=== PATIENT | female | born 1980 | race Caucasian/White ===

== ENCOUNTER 2022-09-20 12:50 | Inpatient (IN) | payer OTHER ==
[2022-09-20 12:55] LABS: Glucose,Whole Blood 449 mg/dL (70-110)
--- NOTE | 2022-09-20 13:40 | ED ---
General Adult HPI - General Chief complaint: Recheck/Abnormal Lab/Rx Stated complaint: hyperglycemia Time Seen by Provider: 09/20/22 13:40 Source: patient Mode of arrival: ambulatory Limitations: no limitations - History of Present Illness Initial comments: 41-year-old female with past medical history of type 1 diabetes who presents to the emergency department thinking that she is in DKA. States that she has been in DKA approximately 3 times before and was hospitalized at [facility]. Usually her DKA episodes are brought on by stress. She reports being compliant with her insulin. Check her sugar last night which was in the 500s. Corrected herself and her glucose went down to 325. Patient thought that she was "in the clear". Woke this morning with nausea, diffuse muscle aches. Having difficulty holding down any fluids to nausea. Denies fevers. No chest pain, fevers, shortness of breath, abdominal pain. No changes in her bowel or bladder habits. No other alleviating, precipitating or modifying factors - Related Data Home Medications Medication Instructions Recorded Confirmed Insulin Aspart [NovoLOG Flexpen] See Protocol SQ TID-W/MEALS 09/20/22 09/20/22 Insulin Glargine,Hum.rec.anlog 26 unit SQ HS 09/20/22 09/20/22 [Lantus Solostar Pen] Allergies Allergy/AdvReac Type Severity Reaction Status Date / Time No Known Allergies Allergy Verified 09/20/22 14:43 Review of Systems ROS Statement: Those systems with pertinent positive or pertinent negative responses have been documented in the HPI. ROS Other: All systems not noted in ROS Statement are negative. Past Medical History Past Medical History: Diabetes Mellitus History of Any Multi-Drug Resistant Organisms: None Reported Past Surgical History: Section Past Psychological History: No Psychological Hx Reported Smoking Status: Never smoker Past Alcohol Use History: None Reported Past Drug Use History: None Reported - Past Family History Mother Family Medical History: Diabetes Mellitus, Hypertension Additional Family Medical History / Comment(s): type 2 DM General Exam Limitations: no limitations General appearance: alert, other (toxic looking) Head exam: Present: atraumatic, normocephalic, normal inspection Eye exam: Present: normal appearance, PERRL, EOMI. Absent: scleral icterus, conjunctival injection, periorbital swelling ENT exam: Present: normal exam, mucous membranes dry Neck exam: Present: normal inspection. Absent: tenderness, meningismus, l ymphadenopathy Respiratory exam: Present: normal lung sounds bilaterally, other (tachpynia). Absent: respiratory distress, wheezes, rales, rhonchi, stridor Cardiovascular Exam: Present: normal rhythm, tachycardia, normal heart sounds. Absent: systolic murmur, diastolic murmur, rubs, gallop, clicks GI/Abdominal exam: Present: soft, normal bowel sounds. Absent: distended, tenderness, guarding, rebound, rigid Extremities exam: Present: normal inspection, full ROM, normal capillary refill. Absent: tenderness, pedal edema, joint swelling, calf tenderness Back exam: Present: normal inspection Neurological exam: Present: alert, oriented X3, CN II-XII intact Psychiatric exam: Present: flat affect Skin exam: Present: warm, dry, intact, normal color. Absent: rash Course Vital Signs 09/20/22 09/20/22 09/20/22 12:51 14:00 15:00 Temperature 98.2 F Pulse Rate 121 H 122 H 118 H Respiratory 20 30 H 26 H Rate Blood Pressure 119/60 O2 Sat by Pulse 100 Oximetry 09/20/22 09/20/22 16:00 17:18 Temperature 97.7 F Pulse Rate 125 H 130 H Respiratory 32 H 27 H Rate Blood Pressure 148/84 123/80 O2 Sat by Pulse 98 Oximetry - Reevaluation(s) Reevaluation #1: 09/20/22 15:[address] Price who agreed to ICU admission EKG Findings - EKG Comments: EKG Findings:: EKG demonstrates sinus tachycardia with rate of 125. WI interval 168. QRS 80. QTC 399. No acute ST segment elevations or depressions Medical Decision Making - Medical Decision Making Upon arrival patient was placed into room 18. A thorough history and physical exam is performed. IV access is established the patient is given a 2 L bolus of normal saline. Laboratory studies are conducted. Remarkable for a white count of 20. CO2 less than 5. Glucose 526. Urinalysis positive for occasional bacteria. Patient given a dose of Rocephin. Acetone is positive. Patient started on an insulin drip. ABG is obtained which demonstrates a pH of 6.9. PCO2 less than 15. She is given 2 A of bicarb. Patient originally admitted to Dr. sheet to the stepdown unit however after ABG the patient is upgraded to the ICU. Spoke with Dr. Price who agreed to admit the patient's the ICU - Lab Data Result diagrams: 09/21/22 08:38 09/22/22 00:16 Lab Results 09/20/22 09/20/22 09/20/22 Range/Units 12:54 14:33 14:33 WBC 20.0 H (3.8-10.6) k/uL RBC 5.19 (3.80-5.40) m/uL Hgb 15.0 (11.4-16.0) gm/dL Hct 49.0 H (34.0-46.0) % MCV 94.5 (80.0-100.0) fL MCH 28.9 (25.0-35.0) pg MCHC 30.6 L (31.0-37.0) g/dL RDW 13.2 (11.5-15.5) % Plt Count 284 (150-450) k/uL MPV 8.4 Neutrophils % 92 % Lymphocytes % 5 % Monocytes % 2 % Eosinophils % 0 % Basophils % 0 % Neutrophils # 18.4 H (1.3-7.7) k/uL Lymphocytes # 0.9 L (1.0-4.8) k/uL Monocytes # 0.4 (0-1.0) k/uL Eosinophils # 0.0 (0-0.7) k/uL Basophils # 0.1 (0-0.2) k/uL Hypochromasia Marked Sodium 136 L (137-145) mmol/L Potassium 5.2 H (3.5-5.1) mmol/L Chloride 107 (98-107) mmol/L Carbon Dioxide <5 L* (22-30) mmol/L Anion Gap mmol/L BUN 19 H (7-17) mg/dL Creatinine 0.83 (0.52-1.04) mg/dL Est GFR (CKD-EPI)AfAm >90 (>60 ml/min/1.73 sqM) Est GFR (CKD-EPI)NonAf 87 (>60 ml/min/1.73 sqM) Glucose 526 H* (74-99) mg/dL POC Glucose (mg/dL) 449 H (70-110) mg/dL POC Glu Inspector Tool ID Jake Del Castillo Plasma Lactic Acid Evens (0.7-2.0) mmol/L Calcium 9.5 (8.4-10.2) mg/dL Magnesium 2.0 (1.6-2.3) mg/dL Total Bilirubin 1.1 (0.2-1.3) mg/dL AST 21 (14-36) U/L ALT 19 (4-34) U/L Alkaline Phosphatase 150 H (38-126) U/L Total Protein 7.4 (6.3-8.2) g/dL Albumin 4.7 (3.5-5.0) g/dL HCG, Qual Not Detected Urine Color Urine Appearance (Clear) Urine pH (5.0-8.0) Ur Specific [place] (1.001-1.035) Urine Protein (Negative) Urine Glucose (UA) (Negative) Urine Ketones (Negative) Urine Blood (Negative) Urine Nitrite (Negative) Urine Bilirubin (Negative) Urine Urobilinogen (<2.0) mg/dL Ur Leukocyte Esterase (Negative) Urine RBC (0-5) /hpf Urine WBC (0-5) /hpf Ur Squamous Epith Cells (0-4) /hpf Amorphous Sediment (None) /hpf Urine Bacteria (None) /hpf Urine Mucus (None) /hpf Acetone, Qual Positive (Negative) 09/20/22 09/20/22 Range/Units 14:33 14:33 WBC (3.8-10.6) k/uL RBC (3.80-5.40) m/uL Hgb (11.4-16.0) gm/dL Hct (34.0-46.0) % MCV (80.0-100.0) fL MCH (25.0-35.0) pg MCHC (31.0-37.0) g/dL RDW (11.5-15.5) % Plt Count (150-450) k/uL MPV Neutrophils % % Lymphocytes % % Monocytes % % Eosinophils % % Basophils % % Neutrophils # (1.3-7.7) k/uL Lymphocytes # (1.0-4.8) k/uL Monocytes # (0-1.0) k/uL Eosinophils # (0-0.7) k/uL Basophils # (0-0.2) k/uL Hypochromasia Sodium (137-145) mmol/L Potassium (3.5-5.1) mmol/L Chloride (98-107) mmol/L Carbon Dioxide (22-30) mmol/L Anion Gap mmol/L BUN (7-17) mg/dL Creatinine (0.52-1.04) mg/dL Est GFR (CKD-EPI)AfAm (>60 ml/min/1.73 sqM) Est GFR (CKD-EPI)NonAf (>60 ml/min/1.73 sqM) Glucose (74-99) mg/dL POC Glucose (mg/dL) (70-110) mg/dL POC Glu Inspector Tool ID Plasma Lactic Acid Evens 1.7 (0.7-2.0) mmol/L Calcium (8.4-10.2) mg/dL Magnesium (1.6-2.3) mg/dL Total Bilirubin (0.2-1.3) mg/dL AST (14-36) U/L ALT (4-34) U/L Alkaline Phosphatase (38-126) U/L Total Protein (6.3-8.2) g/dL Albumin (3.5-5.0) g/dL HCG, Qual Urine Color Colorless Urine Appearance Cloudy H (Clear) Urine pH 5.5 (5.0-8.0) Ur Specific [place] 1.018 (1.001-1.035) Urine Protein Trace H (Negative) Urine Glucose (UA) 4+ H (Negative) Urine Ketones 4+ H (Negative) Urine Blood Negative (Negative) Urine Nitrite Negative (Negative) Urine Bilirubin Negative (Negative) Urine Urobilinogen <2.0 (<2.0) mg/dL Ur Leukocyte Esterase Large H (Negative) Urine RBC 2 (0-5) /hpf Urine WBC 50 H (0-5) /hpf Ur Squamous Epith Cells 5 H (0-4) /hpf Amorphous Sediment Few H (None) /hpf Urine Bacteria Occasional H (None) /hpf Urine Mucus Rare H (None) /hpf Acetone, Qual (Negative) Critical Care Time Critical Care Time: Yes Critical Care Time: 32 minutes Disposition Clinical Impression: DKA (diabetic ketoacidosis), Leukocytosis Disposition: ADMITTED IP TO THIS [facility] Condition: Serious Is patient prescribed a controlled substance at d/c from ED?: No Time of Disposition: 15:06 Decision to Admit Reason: Admit from EC Decision Date: 09/20/22 Decision Time: 15:06
[2022-09-20] MEDS ORDERED: SODIUM CHLORIDE 0.9% 1,000 ML IV STA (13:50)
[2022-09-20] MEDS ORDERED: SODIUM CHLORIDE 0.9% 1,000 ML IV ONE (14:16)
[2022-09-20 14:47] LABS: Basophils # (A) 0.1 k/uL (0-0.2); Basophils % (A) 0 %; Eosinophils % (A) 0 %; Hypochromasia Marked; Lymphocytes # (A) 0.9 k/uL (1.0-4.8); Lymphocytes % (A) 5 %; MCH 28.9 pg (25.0-35.0); MCHC 30.6 g/dL (31.0-37.0); MCV 94.5 fL (80.0-100.0); Mean Platelet Volume 8.4; Monocytes # (A) 0.4 k/uL (0-1.0); Monocytes % (A) 2 %; Neutrophils # (A) 18.4 k/uL (1.3-7.7); Neutrophils % (A) 92 %; Platelet Count 284 k/uL (150-450); RBC 5.19 m/uL (3.80-5.40); RDW 13.2 % (11.5-15.5)
[2022-09-20 14:51] LABS: ALT 19 U/L (4-34); AST 21 U/L (14-36); African American GFR (CKD) >90 (>60 ml/min/1.73 sqM); Albumin 4.7 g/dL (3.5-5.0); Alkaline Phosphatase 150 U/L (38-126); Blood Urea Nitrogen 19 mg/dL (7-17); Calcium 9.5 mg/dL (8.4-10.2); Chloride 107 mmol/L (98-107); Non-African American GFR(CKD) 87 (>60 ml/min/1.73 sqM); Potassium 5.2 mmol/L (3.5-5.1); Sodium 136 mmol/L (137-145); Total Bilirubin 1.1 mg/dL (0.2-1.3); Total Protein 7.4 g/dL (6.3-8.2)
[2022-09-20 14:56] LABS: Carbon Dioxide <5 mmol/L (22-30); Glucose 526 mg/dL (74-99)
[2022-09-20 15:02] LABS: Amorphous Sediment,Urine Few /hpf; Appearance,Urine Cloudy (Clear); Bacteria,Urine Occasional /hpf; Bilirubin,Urine Negative (Negative); Blood,Urine Negative (Negative); Color,Urine Colorless; Glucose,Urine (UA) 4+ (Negative); Leukocyte Esterase,Urine Large (Negative); Mucus,Urine Rare /hpf; Nitrite,Urine Negative (Negative); PH, Urine 5.5 (5.0-8.0); Protein,Urine Trace (Negative); RBC,Urine 2 /hpf (0-5); Specific Gravity,Urine 1.018 (1.001-1.035); Squamous Epithelial Cell,Urine 5 /hpf (0-4); Urobilinogen,Urine <2.0 mg/dL (<2.0); WBC,Urine 50 /hpf (0-5)
[2022-09-20 15:07] LABS: Ketones,Urine 4+ (Negative)
[2022-09-20 15:37] LABS: ABG Oxygen Saturation 97.8 % (94-97); ABG PO2 136 mmHg (83-108); Allen Test Performed? Yes
[2022-09-20 15:41] LABS: ABG PCO2 <15 mmHg (35-45); ABG PH 6.94 (7.35-7.45)
[2022-09-20] MEDS ORDERED: SODIUM BICARB 8.4% 50 ML SYR (1 MEQ/ML) IV STA (15:48)
[2022-09-20] MEDS ORDERED: NALOXONE 0.4 MG/ML 1 ML VIAL IV PRN (15:49)
[2022-09-20] MEDS ORDERED: ONDANSETRON 4 MG/2 ML VIAL IVP STA (15:51)
[2022-09-20] MEDS: INSULIN REGULAR 100 UNIT in SODIUM CHLORIDE 0.9% 100 ML IV SCH (16:17)
[2022-09-20 17:03] LABS: Glucose,Whole Blood 410 mg/dL (70-110)
[2022-09-20 17:04] LABS: HCG,Qualitative Serum Not Detected
[2022-09-20] MEDS ORDERED: SODIUM CHLORIDE 0.9% 1,000 ML IV SCH (17:30)
[2022-09-20 18:09] LABS: Glucose,Whole Blood 299 mg/dL (70-110)
[2022-09-20 18:40] LABS: Glucose,Whole Blood 259 mg/dL (70-110)
[2022-09-20] MEDS: D5-0.45% NACL WITH KCL 20MEQ/L 1,000 ML IV SCH (18:40)
--- NOTE | 2022-09-20 18:56 | P.HPIM ---
History of Present Illness This is a pleasant 41 years old female with past medical history of diabetes mellitus, insulin-dependent on Lantus presents because she was feeling her sugar high she was feeling nauseated with leg cramps. patient is a known diabetic on lantus insulin at 26 units daily and humolog insulin per sliding scale , yesterday evening patient was getting more tired with nausea and week and she gets a feeling that her sugar high when she checked and it was 557 she took extra dose of insulin and into hours went down to 327, and the morning was high again and take extra more and she felt better a little bit but then she got worse and decided to come to emergency room Patient is fully awake and oriented 3. She is very tachypneic but denies any chest pain or coughing or dyspnea. No abdominal pain or vomiting. She denies diarrhea. She denies urinary complaints, no fever. No headache or dizziness or weakness or numbness. No problem with her menstrual cycle. No vaginal discharge. She denies also smoking alcohol or illicit drugs On admission her Vitas looks stable and patient is afebrile . Patient is tachycardic and tachypneic however patient saturates 98% on room air showing leukocytosis 20,000, supple looks dehydrated. PH is low at 6.9 and pCO2 less than 15 while prior to 136. Sodium 136, potassium 5.2, creatinine normal 0.8. Glucose elevated 526. Liver enzymes and bilirubin normal. Urinalysis is suspicious for UTI. Acetone is positive. HCG serum is negative EKG shows sinus tachycardia at [address]-T changes In the emergency room she received 2 L of normal saline, sodium bicarb and started on insulin drip per protocol Review of Systems Review of systems CONSTITUTIONAL: No fever, no malaise, no fatigue. HEENT: No recent visual problems or hearing problems. Denied any sore throat. CARDIOVASCULAR: No orthopnea, PND, no palpitations, no syncope. PULMONARY: No shortness of breath, no cough, no hemoptysis. GASTROINTESTINAL: No diarrhea,no vomiting, no abdominal pain. Normoactive bowel sounds. NEUROLOGICAL: No headaches, no weakness, no numbness. HEMATOLOGICAL: Denies any bleeding or petechiae. GENITOURINARY: Denies any burning micturition, frequency, or urgency. MUSCULOSKELETAL/RHEUMATOLOGICAL: Denies any joint pain, swelling, or any muscle pain. ENDOCRINE: Denies any polyuria or polydipsia. Past Medical History Past Medical History: Diabetes Mellitus History of Any Multi-Drug Resistant Organisms: None Reported Past Surgical History: Section Past Psychological History: No Psychological Hx Reported Smoking Status: Never smoker Past Alcohol Use History: None Reported Past Drug Use History: None Reported - Past Family History Mother Family Medical History: Diabetes Mellitus, Hypertension Additional Family Medical History / Comment(s): type 2 DM Medications and Allergies Home Medications Medication Instructions Recorded Confirmed Type Insulin Aspart [NovoLOG Flexpen] See Protocol SQ TID-W/MEALS 09/20/22 09/20/22 History Insulin Glargine,Hum.rec.anlog 26 unit SQ HS 09/20/22 09/20/22 History [Lantus Solostar Pen] Allergies Allergy/AdvReac Type Severity Reaction Status Date / Time No Known Allergies Allergy Verified 09/20/22 14:43 Physical Exam Vitals: Vital Signs Temp Pulse Resp BP Pulse Ox 09/20/22 16:00 125 H 32 H 148/84 09/20/22 15:00 118 H 26 H 09/20/22 14:00 122 H 30 H 09/20/22 12:51 98.2 F 121 H 20 119/60 100 Intake and Output 09/20/22 09/20/22 09/20/22 06:59 14:59 22:59 Other: Weight 61.235 kg -GENERAL: The patient is alert and oriented x3, not in any acute distress. Well developed, well nourished. Patient looks fatigued and generally weak and appre hensive HEENT: Pupils are round and equally reacting to light. EOMI. No scleral icterus. No conjunctival pallor. Normocephalic, atraumatic. No pharyngeal erythema. No thyromegaly. CARDIOVASCULAR: S1 and S2 present. No murmurs, rubs, or gallops. -PULMONARY: Chest is clear to auscultation, no wheezing or crackles. Tachypnea ABDOMEN: Soft, nontender, nondistended, normoactive bowel sounds. No palpable organomegaly. MUSCULOSKELETAL: No joint swelling or deformity. EXTREMITIES: No cyanosis, clubbing, or pedal edema. NEUROLOGICAL: Gross neurological examination did not reveal any focal deficits. SKIN: No rashes. no petechiae. Results CBC & Chem 7: 09/20/22 14:33 11/16/22 14:33 Labs: Abnormal Lab Results - Last 24 Hours (Table) 09/20/22 09/20/22 09/20/22 Range/Units 12:54 14:33 14:33 WBC 20.0 H (3.8-10.6) k/uL Hct 49.0 H (34.0-46.0) % MCHC 30.6 L (31.0-37.0) g/dL Neutrophils # 18.4 H (1.3-7.7) k/uL Lymphocytes # 0.9 L (1.0-4.8) k/uL ABG pH (7.35-7.45) ABG pCO2 (35-45) mmHg ABG pO2 (83-108) mmHg ABG O2 Saturation (94-97) % Sodium 136 L (137-145) mmol/L Potassium 5.2 H (3.5-5.1) mmol/L Carbon Dioxide <5 L* (22-30) mmol/L BUN 19 H (7-17) mg/dL Glucose 526 H* (74-99) mg/dL POC Glucose (mg/dL) 449 H (70-110) mg/dL Alkaline Phosphatase 150 H (38-126) U/L Urine Appearance (Clear) Urine Protein (Negative) Urine Glucose (UA) (Negative) Urine Ketones (Negative) Ur Leukocyte Esterase (Negative) Urine WBC (0-5) /hpf Ur Squamous Epith Cells (0-4) /hpf Amorphous Sediment (None) /hpf Urine Bacteria (None) /hpf Urine Mucus (None) /hpf 09/20/22 09/20/22 Range/Units 14:33 15:26 WBC (3.8-10.6) k/uL Hct (34.0-46.0) % MCHC (31.0-37.0) g/dL Neutrophils # (1.3-7.7) k/uL Lymphocytes # (1.0-4.8) k/uL ABG pH 6.94 L* (7.35-7.45) ABG pCO2 <15 L* (35-45) mmHg ABG pO2 136 H (83-108) mmHg ABG O2 Saturation 97.8 H (94-97) % Sodium (137-145) mmol/L Potassium (3.5-5.1) mmol/L Carbon Dioxide (22-30) mmol/L BUN (7-17) mg/dL Glucose (74-99) mg/dL POC Glucose (mg/dL) (70-110) mg/dL Alkaline Phosphatase (38-126) U/L Urine Appearance Cloudy H (Clear) Urine Protein Trace H (Negative) Urine Glucose (UA) 4+ H (Negative) Urine Ketones 4+ H (Negative) Ur Leukocyte Esterase Large H (Negative) Urine WBC 50 H (0-5) /hpf Ur Squamous Epith Cells 5 H (0-4) /hpf Amorphous Sediment Few H (None) /hpf Urine Bacteria Occasional H (None) /hpf Urine Mucus Rare H (None) /hpf Assessment and Plan Assessment: diabetic ketoacidosis diabetes mellitus with hyperglycemia Metabolic acidosis secondary to above dehydration possible acute urinary tract infection Plan: continue with insulin drip per protocol Continue with IV hydration Replace electrolytes Monitor glucose closely. Start ceftriaxone follow-up urine culture Check chest x-ray Pulmonary/critical care team consult Labs and medication were reviewed.. Continue same treatment. Continue with symptomatic treatment. Resume home medication. Monitor labs and vitals. DVT and GI prophylaxis. Further recommendations as per clinical course of the patient DVT prophylaxis: Subcutaneous heparin GI Prophylaxis: Pepcid Prognosis is guarded
[2022-09-20 19:07] LABS: African American GFR (CKD) >90 (>60 ml/min/1.73 sqM); Anion Gap 24 mmol/L; Blood Urea Nitrogen 18 mg/dL (7-17); Chloride 116 mmol/L (98-107); Glucose 316 mg/dL (74-99); Non-African American GFR(CKD) >90 (>60 ml/min/1.73 sqM); Potassium 4.8 mmol/L (3.5-5.1); Sodium 145 mmol/L (137-145)
[2022-09-20 19:11] LABS: Glucose,Whole Blood 309 mg/dL (70-110)
[2022-09-20 19:12] LABS: Carbon Dioxide 5 mmol/L (22-30)
--- NOTE | 2022-09-20 19:46 | XR ---
EXAMINATION TYPE: XR chest 1V portable DATE OF EXAM: 09/20/2022 7:16 PM COMPARISON: None TECHNIQUE: XR chest 1V portable Portable AP radiograph of the chest. CLINICAL INDICATION:Female, 41 years old with history of tachypnea; FINDINGS: Lungs/Pleura: There is no evidence of pleural effusion, focal consolidation, or pneumothorax. Pulmonary vascularity: Unremarkable. Heart/mediastinum: Cardiomediastinal silhouette is unremarkable. Musculoskeletal: No acute osseous pathology. IMPRESSION: No acute cardiopulmonary disease/process.
[2022-09-20 20:35] LABS: Glucose,Whole Blood 245 mg/dL (70-110)
[2022-09-20] MEDS: FAMOTIDINE 20 MG/2 ML VIAL IV SCH (20:52)
[2022-09-20] MEDS: HEPARIN SODIUM,PORCINE/PF 5,000 UNIT/0.5 ML SYRINGE SQ SCH (20:57)
[2022-09-20 21:54] LABS: Glucose,Whole Blood 209 mg/dL (70-110)
[2022-09-20 22:44] LABS: Glucose,Whole Blood 216 mg/dL (70-110)
[2022-09-21 00:07] LABS: African American GFR (CKD) >90 (>60 ml/min/1.73 sqM); Anion Gap 18 mmol/L; Blood Urea Nitrogen 15 mg/dL (7-17); Calcium 8.8 mg/dL (8.4-10.2); Chloride 119 mmol/L (98-107); Glucose 224 mg/dL (74-99); Magnesium 2.1 mg/dL (1.6-2.3); Non-African American GFR(CKD) >90 (>60 ml/min/1.73 sqM); Potassium 4.6 mmol/L (3.5-5.1); Sodium 144 mmol/L (137-145)
[2022-09-21 00:12] LABS: Glucose,Whole Blood 194 mg/dL (70-110)
[2022-09-21 00:15] LABS: Carbon Dioxide 7 mmol/L (22-30)
[2022-09-21] MEDS: D5-0.45% NACL WITH KCL 20MEQ/L 1,000 ML IV SCH ×4 (01:16→21:08)
[2022-09-21 01:19] LABS: Glucose,Whole Blood 152 mg/dL (70-110)
[2022-09-21 02:52] LABS: Glucose,Whole Blood 145 mg/dL (70-110)
[2022-09-21 04:54] LABS: Glucose,Whole Blood 149 mg/dL (70-110)
[2022-09-21 06:00] LABS: Glucose,Whole Blood 166 mg/dL (70-110)
[2022-09-21 06:52] LABS: Glucose,Whole Blood 169 mg/dL (70-110)
[2022-09-21 08:01] LABS: Glucose,Whole Blood 176 mg/dL (70-110)
[2022-09-21 09:03] LABS: Glucose,Whole Blood 221 mg/dL (70-110)
[2022-09-21 09:29] LABS: HGB 14.5 gm/dL (11.4-16.0); Hypochromasia Marked; MCH 28.8 pg (25.0-35.0); MCHC 31.6 g/dL (31.0-37.0); MCV 91.2 fL (80.0-100.0); Mean Platelet Volume 9.7; Platelet Count 180 k/uL (150-450); RBC 5.04 m/uL (3.80-5.40); RDW 13.6 % (11.5-15.5); WBC 12.8 k/uL (3.8-10.6)
[2022-09-21] MEDS: ACETAMINOPHEN TAB 325 MG TAB PO PRN ×3 (09:29→22:04)
[2022-09-21 09:48] LABS: ALT 14 U/L (4-34); AST 14 U/L (14-36); African American GFR (CKD) >90 (>60 ml/min/1.73 sqM); Albumin 3.5 g/dL (3.5-5.0); Alkaline Phosphatase 106 U/L (38-126); Anion Gap 13 mmol/L; Bilirubin, Delta 0.4 mg/dL (0.0-0.2); Bilirubin,Unconjugated 0.3 mg/dL (0.0-1.1); Blood Urea Nitrogen 14 mg/dL (7-17); Calcium 8.2 mg/dL (8.4-10.2); Carbon Dioxide 11 mmol/L (22-30); Chloride 118 mmol/L (98-107); Glucose 226 mg/dL (74-99); Magnesium 1.8 mg/dL (1.6-2.3); Non-African American GFR(CKD) >90 (>60 ml/min/1.73 sqM); Potassium 4.6 mmol/L (3.5-5.1); Sodium 142 mmol/L (137-145); Total Bilirubin 0.7 mg/dL (0.2-1.3); Total Protein 5.7 g/dL (6.3-8.2)
[2022-09-21 10:00] LABS: Glucose,Whole Blood 241 mg/dL (70-110)
[2022-09-21] MEDS: HEPARIN SODIUM,PORCINE/PF 5,000 UNIT/0.5 ML SYRINGE SQ SCH ×2 (10:00→21:13)
[2022-09-21] MEDS: FAMOTIDINE 20 MG/2 ML VIAL IV SCH ×2 (10:00→21:16)
[2022-09-21] MEDS ORDERED: Magnesium Replacement Protocol 1 EACH MISC MISCELLANE PRN (10:38)
[2022-09-21] MEDS: MAGNESIUM SULFATE-D5W PMX 1 GM in DEXTROSE/WATER 1 100ML.BAG IVPB SCH ×2 (11:02→13:00)
--- NOTE | 2022-09-21 11:22 | P.PN ---
Subjective This is a pleasant 41 years old female with past medical history of diabetes mellitus, insulin-dependent on Lantus presents because she was feeling her sugar high she was feeling nauseated with leg cramps. patient is a known diabetic on lantus insulin at 26 units daily and humolog insulin per sliding scale , yesterday evening patient was getting more tired with nausea and week and she gets a feeling that her sugar high when she checked and it was 557 she took extra dose of insulin and into hours went down to 327, and the morning was high again and take extra more and she felt better a little bit but then she got worse and decided to come to emergency room Patient is fully awake and oriented 3. She is very tachypneic but denies any chest pain or coughing or dyspnea. No abdominal pain or vomiting. She denies diarrhea. She denies urinary complaints, no fever. No headache or dizziness or weakness or numbness. No problem with her menstrual cycle. No vaginal discharge. She denies also smoking alcohol or illicit drugs On admission her Vitas looks stable and patient is afebrile . Patient is tachycardic and tachypneic however patient saturates 98% on room air showing leukocytosis 20,000, supple looks dehydrated. PH is low at 6.9 and pCO2 less than 15 while prior to 136. Sodium 136, potassium 5.2, creatinine normal 0.8. Glucose elevated 526. Liver enzymes and bilirubin normal. Urinalysis is suspicious for UTI. Acetone is positive. HCG serum is negative EKG shows sinus tachycardia at [address]-T changes In the emergency room she received 2 L of normal saline, sodium bicarb and started on insulin drip per protocol 09/21/2022 Patient is awake alert, looks more comfortable today, more calm and relaxed. No nonhypertensive. Tachypnea has resolved.She still tachycardic with heart rate around 117 Her sugars better controlled and her neck Is this morning at 13. Specimen vitals are stable WBC was 20,000 yesterday, today lab are pending. She is also on ceftriaxone for possible UTI, no more symptoms and urine culture is pending. Continue with of the fluid and insulin drip this morning hopefully would be able to switch it to longer acting insulin with sliding scale and then the patient started eating today Objective - Vital Signs Vital signs: Vital Signs Temp 98.7 F 09/21/22 08:00 Pulse 117 H 09/21/22 11:00 Resp 23 09/21/22 11:00 BP 131/77 09/21/22 11:00 Pulse Ox 98 09/21/22 11:00 FiO2 Intake & Output 09/20/22 09/21/22 09/21/22 18:59 06:59 18:59 Intake Total 200 1860.764 750 Output Total 0 900 Balance 200 1860.764 -150 Weight 61.235 kg 64.4 kg Intake: IV 200 1800 750 D5-0.45% NaCl with KCl 1800 750 20Meq/l 1,000 ml @ 150 mls/hr IV .[id number] [facility] Rx# :[id number] Sodium Chloride 0.9% 1, 200 000 ml @ 200 mls/hr IV . Q5H [facility] Rx#:[id number] Intake, IV Titration 60.764 Amount Insulin Regular 100 unit 60.764 In Sodium Chloride 0.9% 100 ml @ 0.1 UNITS/KG/HR 6.185 mls/hr IV .[id number] [facility] Rx#:[id number] Output: Urine 0 900 Other: Voiding Method Toilet Toilet # Voids 1 0 - Exam GENERAL: The patient is alert and oriented x3, not in any acute distress. Well developed, well nourished. HEENT: Pupils are round and equally reacting to light. EOMI. No scleral icterus. No conjunctival pallor. Normocephalic, atraumatic. No pharyngeal erythema. No thyromegaly. CARDIOVASCULAR: S1 and S2 present. No murmurs, rubs, or gallops. PULMONARY: Chest is clear to auscultation, no wheezing or crackles. ABDOMEN: Soft, nontender, nondistended, normoactive bowel sounds. No palpable organomegaly. MUSCULOSKELETAL: No joint swelling or deformity. EXTREMITIES: No cyanosis, clubbing, or pedal edema. NEUROLOGICAL: Gross neurological examination did not reveal any focal deficits. SKIN: No rashes. no petechiae. - Labs CBC & Chem 7: 09/20/22 14:33 09/21/22 08:39 Labs: Abnormal Lab Results - Last 24 Hours (Table) 09/20/22 09/20/22 09/20/22 Range/Units 12:54 14:33 14:33 WBC 20.0 H (3.8-10.6) k/uL Hct 49.0 H (34.0-46.0) % MCHC 30.6 L (31.0-37.0) g/dL Neutrophils # 18.4 H (1.3-7.7) k/uL Lymphocytes # 0.9 L (1.0-4.8) k/uL ABG pH (7.35-7.45) ABG pCO2 (35-45) mmHg ABG pO2 (83-108) mmHg ABG O2 Saturation (94-97) % Sodium 136 L (137-145) mmol/L Potassium 5.2 H (3.5-5.1) mmol/L Chloride (98-107) mmol/L Carbon Dioxide <5 L* (22-30) mmol/L BUN 19 H (7-17) mg/dL Glucose 526 H* (74-99) mg/dL POC Glucose (mg/dL) 449 H (70-110) mg/dL Calcium (8.4-10.2) mg/dL Delta Bilirubin (0.0-0.2) mg/dL Alkaline Phosphatase 150 H (38-126) U/L Total Protein (6.3-8.2) g/dL Urine Appearance (Clear) Urine Protein (Negative) Urine Glucose (UA) (Negative) Urine Ketones (Negative) Ur Leukocyte Esterase (Negative) Urine WBC (0-5) /hpf Ur Squamous Epith Cells (0-4) /hpf Amorphous Sediment (None) /hpf Urine Bacteria (None) /hpf Urine Mucus (None) /hpf 09/20/22 09/20/22 09/20/22 Range/Units 14:33 15:26 17:01 WBC (3.8-10.6) k/uL Hct (34.0-46.0) % MCHC (31.0-37.0) g/dL Neutrophils # (1.3-7.7) k/uL Lymphocytes # (1.0-4.8) k/uL ABG pH 6.94 L* (7.35-7.45) ABG pCO2 <15 L* (35-45) mmHg ABG pO2 136 H (83-108) mmHg ABG O2 Saturation 97.8 H (94-97) % Sodium (137-145) mmol/L Potassium (3.5-5.1) mmol/L Chloride (98-107) mmol/L Carbon Dioxide (22-30) mmol/L BUN (7-17) mg/dL Glucose (74-99) mg/dL POC Glucose (mg/dL) 410 H (70-110) mg/dL Calcium (8.4-10.2) mg/dL Delta Bilirubin (0.0-0.2) mg/dL Alkaline Phosphatase (38-126) U/L Total Protein (6.3-8.2) g/dL Urine Appearance Cloudy H (Clear) Urine Protein Trace H (Negative) Urine Glucose (UA) 4+ H (Negative) Urine Ketones 4+ H (Negative) Ur Leukocyte Esterase Large H (Negative) Urine WBC 50 H (0-5) /hpf Ur Squamous Epith Cells 5 H (0-4) /hpf Amorphous Sediment Few H (None) /hpf Urine Bacteria Occasional H (None) /hpf Urine Mucus Rare H (None) /hpf 09/20/22 09/20/22 09/20/22 Range/Units 18:07 18:33 18:38 WBC (3.8-10.6) k/uL Hct (34.0-46.0) % MCHC (31.0-37.0) g/dL Neutrophils # (1.3-7.7) k/uL Lymphocytes # (1.0-4.8) k/uL ABG pH (7.35-7.45) ABG pCO2 (35-45) mmHg ABG pO2 (83-108) mmHg ABG O2 Saturation (94-97) % Sodium (137-145) mmol/L Potassium (3.5-5.1) mmol/L Chloride 116 H (98-107) mmol/L Carbon Dioxide 5 L* (22-30) mmol/L BUN 18 H (7-17) mg/dL Glucose 316 H (74-99) mg/dL POC Glucose (mg/dL) 299 H 259 H (70-110) mg/dL Calcium (8.4-10.2) mg/dL Delta Bilirubin (0.0-0.2) mg/dL Alkaline Phosphatase (38-126) U/L Total Protein (6.3-8.2) g/dL Urine Appearance (Clear) Urine Protein (Negative) Urine Glucose (UA) (Negative) Urine Ketones (Negative) Ur Leukocyte Esterase (Negative) Urine WBC (0-5) /hpf Ur Squamous Epith Cells (0-4) /hpf Amorphous Sediment (None) /hpf Urine Bacteria (None) /hpf Urine Mucus (None) /hpf 09/20/22 09/20/22 09/20/22 Range/Units 19:10 20:34 21:53 WBC (3.8-10.6) k/uL Hct (34.0-46.0) % MCHC (31.0-37.0) g/dL Neutrophils # (1.3-7.7) k/uL Lymphocytes # (1.0-4.8) k/uL ABG pH (7.35-7.45) ABG pCO2 (35-45) mmHg ABG pO2 (83-108) mmHg ABG O2 Saturation (94-97) % Sodium (137-145) mmol/L Potassium (3.5-5.1) mmol/L Chloride (98-107) mmol/L Carbon Dioxide (22-30) mmol/L BUN (7-17) mg/dL Glucose (74-99) mg/dL POC Glucose (mg/dL) 309 H 245 H 209 H (70-110) mg/dL Calcium (8.4-10.2) mg/dL Delta Bilirubin (0.0-0.2) mg/dL Alkaline Phosphatase (38-126) U/L Total Protein (6.3-8.2) g/dL Urine Appearance (Clear) Urine Protein (Negative) Urine Glucose (UA) (Negative) Urine Ketones (Negative) Ur Leukocyte Esterase (Negative) Urine WBC (0-5) /hpf Ur Squamous Epith Cells (0-4) /hpf Amorphous Sediment (None) /hpf Urine Bacteria (None) /hpf Urine Mucus (None) /hpf 09/20/22 09/20/22 09/21/22 Range/Units 22:43 23:01 00:10 WBC (3.8-10.6) k/uL Hct (34.0-46.0) % MCHC (31.0-37.0) g/dL Neutrophils # (1.3-7.7) k/uL Lymphocytes # (1.0-4.8) k/uL ABG pH (7.35-7.45) ABG pCO2 (35-45) mmHg ABG pO2 (83-108) mmHg ABG O2 Saturation (94-97) % Sodium (137-145) mmol/L Potassium (3.5-5.1) mmol/L Chloride 119 H (98-107) mmol/L Carbon Dioxide 7 L* (22-30) mmol/L BUN (7-17) mg/dL Glucose 224 H (74-99) mg/dL POC Glucose (mg/dL) 216 H 194 H (70-110) mg/dL Calcium (8.4-10.2) mg/dL Delta Bilirubin (0.0-0.2) mg/dL Alkaline Phosphatase (38-126) U/L Total Protein (6.3-8.2) g/dL Urine Appearance (Clear) Urine Protein (Negative) Urine Glucose (UA) (Negative) Urine Ketones (Negative) Ur Leukocyte Esterase (Negative) Urine WBC (0-5) /hpf Ur Squamous Epith Cells (0-4) /hpf Amorphous Sediment (None) /hpf Urine Bacteria (None) /hpf Urine Mucus (None) /hpf 09/21/22 09/21/22 09/21/22 Range/Units 01:17 02:51 04:53 WBC (3.8-10.6) k/uL Hct (34.0-46.0) % MCHC (31.0-37.0) g/dL Neutrophils # (1.3-7.7) k/uL Lymphocytes # (1.0-4.8) k/uL ABG pH (7.35-7.45) ABG pCO2 (35-45) mmHg ABG pO2 (83-108) mmHg ABG O2 Saturation (94-97) % Sodium (137-145) mmol/L Potassium (3.5-5.1) mmol/L Chloride (98-107) mmol/L Carbon Dioxide (22-30) mmol/L BUN (7-17) mg/dL Glucose (74-99) mg/dL POC Glucose (mg/dL) 152 H 145 H 149 H (70-110) mg/dL Calcium (8.4-10.2) mg/dL Delta Bilirubin (0.0-0.2) mg/dL Alkaline Phosphatase (38-126) U/L Total Protein (6.3-8.2) g/dL Urine Appearance (Clear) Urine Protein (Negative) Urine Glucose (UA) (Negative) Urine Ketones (Negative) Ur Leukocyte Esterase (Negative) Urine WBC (0-5) /hpf Ur Squamous Epith Cells (0-4) /hpf Amorphous Sediment (None) /hpf Urine Bacteria (None) /hpf Urine Mucus (None) /hpf 09/21/22 09/21/22 09/21/22 Range/Units 05:58 06:51 08:00 WBC (3.8-10.6) k/uL Hct (34.0-46.0) % MCHC (31.0-37.0) g/dL Neutrophils # (1.3-7.7) k/uL Lymphocytes # (1.0-4.8) k/uL ABG pH (7.35-7.45) ABG pCO2 (35-45) mmHg ABG pO2 (83-108) mmHg ABG O2 Saturation (94-97) % Sodium (137-145) mmol/L Potassium (3.5-5.1) mmol/L Chloride (98-107) mmol/L Carbon Dioxide (22-30) mmol/L BUN (7-17) mg/dL Glucose (74-99) mg/dL POC Glucose (mg/dL) 166 H 169 H 176 H (70-110) mg/dL Calcium (8.4-10.2) mg/dL Delta Bilirubin (0.0-0.2) mg/dL Alkaline Phosphatase (38-126) U/L Total Protein (6.3-8.2) g/dL Urine Appearance (Clear) Urine Protein (Negative) Urine Glucose (UA) (Negative) Urine Ketones (Negative) Ur Leukocyte Esterase (Negative) Urine WBC (0-5) /hpf Ur Squamous Epith Cells (0-4) /hpf Amorphous Sediment (None) /hpf Urine Bacteria (None) /hpf Urine Mucus (None) /hpf 09/21/22 09/21/22 09/21/22 Range/Units 08:39 09:02 09:59 WBC (3.8-10.6) k/uL Hct (34.0-46.0) % MCHC (31.0-37.0) g/dL Neutrophils # (1.3-7.7) k/uL Lymphocytes # (1.0-4.8) k/uL ABG pH (7.35-7.45) ABG pCO2 (35-45) mmHg ABG pO2 (83-108) mmHg ABG O2 Saturation (94-97) % Sodium (137-145) mmol/L Potassium (3.5-5.1) mmol/L Chloride 118 H (98-107) mmol/L Carbon Dioxide 11 L (22-30) mmol/L BUN (7-17) mg/dL Glucose 226 H (74-99) mg/dL POC Glucose (mg/dL) 221 H 241 H (70-110) mg/dL Calcium 8.2 L (8.4-10.2) mg/dL Delta Bilirubin 0.4 H (0.0-0.2) mg/dL Alkaline Phosphatase (38-126) U/L Total Protein 5.7 L (6.3-8.2) g/dL Urine Appearance (Clear) Urine Protein (Negative) Urine Glucose (UA) (Negative) Urine Ketones (Negative) Ur Leukocyte Esterase (Negative) Urine WBC (0-5) /hpf Ur Squamous Epith Cells (0-4) /hpf Amorphous Sediment (None) /hpf Urine Bacteria (None) /hpf Urine Mucus (None) /hpf Microbiology - Last 24 Hours (Table) 09/20/22 14:33 Urine Culture - Preliminary Urine,Voided Assessment and Plan Assessment: diabetic ketoacidosis diabetes mellitus with hyperglycemia Metabolic acidosis secondary to above dehydration possible acute urinary tract infection Plan: continue with insulin drip per protocol Continue with IV hydration Replace electrolytes Monitor glucose closely. Start ceftriaxone follow-up urine culture Pulmonary/critical care team consult Labs and medication were reviewed.. Continue same treatment. Continue with symptomatic treatment. Resume home medication. Monitor labs and vitals. DVT and GI prophylaxis. Further recommendations as per clinical course of the harpreet ent DVT prophylaxis: Subcutaneous heparin GI Prophylaxis: Pepcid Prognosis is guarded
--- NOTE | 2022-09-21 11:23 | P.CNPUL ---
History of Present Illness Consult date: 09/21/22 Requesting physician: Juan Carlos Kaba Reason for consult: other (Critical care management) Chief complaint: Nausea, diffuse muscle aches, hyperglycemia History of present illness: This is a very pleasant 41-year-old female patient who follows with Dr. Rojas as her primary care provider. She has a history of insulin-dependent diabetes mellitus. She has had 3 prior admissions for DKA to [facility]. She presented here to our emergency room yesterday with complaints of nausea, di ffuse muscle aches, poor appetite and could not control her blood sugar levels at home. She is on Lantus Solostar pen 26 units at bedtime along with NovoLog Flex pen 3 times a day with meals. Initial glucose here was 526. Bicarb less than 5. Anion gap of 24. Urinalysis with 4+ glucose. 4+ ketones. Acetone positive. Blood gases revealed a pO2 of 136, pCO2 less than 15, pH 6.95 on 21% FiO2. She was admitted to the intensive care unit and started on the DKA protocol. She is seen today in consultation. She is currently resting comfortably in bed. Awake and alert in no acute distress. She is maintaining good O2 saturations in the 90s on room air. Insulin drip at 1.55 units per hour. D5 W with 0.45 saline and 20 of KCl at 150 ML's per hour. Urinalysis also showed possible UTI and she is currently on ceftriaxone. White count 20.0. Hemoglobin 15.0. Sodium 142. Potassium 4.6. Chloride 118. Bicarb 11. Anion gap 13. BUN 14. Creatinine 0.60. Glucose 241. Started on heparin for DVT prophylaxis. Pepcid for GI prophylaxis. Review of Systems REVIEW OF SYSTEMS: CONSTITUTIONAL: Positive for generalized weakness. Denies any recent significant weight loss or weight gain. EYES: Denies change in vision. EARS, NOSE, MOUTH, THROAT: Denies headaches, denies sore throat. CARDIOVASCULAR: Denies chest pain, palpitations or syncopal episodes. RESPIRATORY: Denies shortness of breath, cough, congestion or hemoptysis. GASTROINTESTINAL: Positive for nausea, poor appetite GENITOURINARY: Denies hematuria, denies infections. MUSKULOSKELETAL: Denies pain, denies swelling. INTEGUMENTARY: Denies rash, denies eczema. NEUROLOGICAL: Denies recent memory loss, no recent seizure activity. PSYCHIATRIC: Denies anxiety, denies depression. HEMATOLOGIC/LYMPHATIC: Denies anemia, denies enlarged lymph nodes. 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 Past Anesthesia/Blood Transfusion Reactions: No Reported Reaction Past Psychological History: No Psychological Hx Reported Smoking Status: Never smoker Past Alcohol Use History: None Reported Past Drug Use History: None Reported - Past Family History Mother Family Medical History: Diabetes Mellitus, Hypertension Additional Family Medical History / Comment(s): type 2 DM Medications and Allergies Home Medications Medication Instructions Recorded Confirmed Type Insulin Aspart [NovoLOG Flexpen] See Protocol SQ TID-W/MEALS 09/20/22 09/20/22 History Insulin Glargine,Hum.rec.anlog 26 unit SQ HS 09/20/22 09/20/22 History [Lantus Solostar Pen] Allergies Allergy/AdvReac Type Severity Reaction Status Date / Time No Known Allergies Allergy Verified 09/20/22 14:43 Physical Exam Vitals: Vital Signs Temp Pulse Pulse Resp BP Pulse Ox 09/21/22 11:00 117 H 23 131/77 98 09/21/22 10:00 125 H 17 128/77 98 09/21/22 09:00 123 H 123/75 99 09/21/22 08:00 98.7 F 125 H 113 H 133/75 98 09/21/22 07:00 118 H 25 H 130/77 99 09/21/22 06:30 114 H 18 98 09/21/22 06:00 112 H 17 123/70 99 09/21/22 05:30 105 H 18 98 09/21/22 05:00 113 H 30 H 133/81 98 09/21/22 04:30 115 H 15 99 09/21/22 04:00 97 F L 116 H 113 H 17 112/68 98 09/21/22 03:30 111 H 20 98 09/21/22 03:00 115 H 18 110/67 99 09/21/22 02:30 117 H 19 110/67 99 09/21/22 02:00 112 H 20 134/80 98 09/21/22 01:30 120 H 18 134/80 99 09/21/22 01:00 122 H 17 111/71 99 09/21/22 00:36 116 H 21 99 09/21/22 00:30 114 H 16 111/71 98 09/21/22 00:00 98 F 120 H 113 H 16 112/73 99 09/20/22 23:30 113 H 17 112/73 98 09/20/22 23:00 118 H 22 108/69 97 09/20/22 22:30 120 H 16 99 09/20/22 22:00 122 H 17 114/70 99 09/20/22 21:30 122 H 18 99 09/20/22 21:00 121 H 19 114/70 99 09/20/22 20:30 118 H 17 99 09/20/22 20:00 97.7 F 122 H 122 H 19 101/67 95 09/20/22 19:30 124 H 40 H 99 09/20/22 19:00 126 H 27 H 98 09/20/22 18:30 126 H 29 H 118/66 97 09/20/22 18:00 130 H 28 H 95 09/20/22 17:30 130 H 27 H 123/80 97 09/20/22 17:18 97.7 F 130 H 27 H 123/80 98 09/20/22 16:00 125 H 32 H 148/84 09/20/22 15:00 118 H 26 H 09/20/22 14:00 122 H 30 H 09/20/22 12:51 98.2 F 121 H 20 119/60 100 Intake and Output 09/20/22 09/21/22 09/21/22 22:59 06:59 14:59 Intake Total 800 1260.764 750 Output Total 0 900 Balance 800 1260.764 -150 Intake: IV 800 1200 750 D5-0.45% NaCl with KCl 600 1200 750 20Meq/l 1,000 ml @ 150 mls/hr IV .Q6H40M [facility] Rx# :[id number] Sodium Chloride 0.9% 1, 200 000 ml @ 200 mls/hr IV . Q5H [facility] Rx#:[id number] Intake, IV Titration 60.764 Amount Insulin Regular 100 unit 60.764 In Sodium Chloride 0.9% 100 ml @ 0.1 UNITS/KG/HR 6.185 mls/hr IV .[id number] [facility] Rx#:[id number] Output: Urine 0 900 Other: Voiding Method Toilet Toilet Toilet # Voids 0 Weight 61.235 kg 64.4 kg GENERAL EXAM: Alert, pleasant 41-year-old female patient, on room air, comfortable in no apparent distress. HEAD: Normocephalic. EYES: Normal reaction of pupils, equal size. NOSE: Clear with pink turbinates. THROAT: No erythema or exudates. NECK: No masses, no JVD. CHEST: No chest wall deformity. LUNGS: Equal air entry with no crackles, wheeze, rhonchi or dullness. CVS: S1 and S2 normal with no audible murmur, regular rhythm. ABDOMEN: No hepatosplenomegaly, normal bowel sounds, no guarding or rigidity. SPINE: No scoliosis or deformity SKIN: No rashes CENTRAL NERVOUS SYSTEM: No focal deficits, tone is normal in all 4 extremities. EXTREMITIES: There is no peripheral edema. No clubbing, no cyanosis. Perip heral pulses are intact. Results - Laboratory Findings CBC and BMP: 09/20/22 14:33 09/21/22 08:39 ABG ABG pH 6.94 (7.35-7.45) L* 09/20/22 15:26 ABG pCO2 <15 mmHg (35-45) L* 09/20/22 15:26 ABG pO2 136 mmHg (83-108) H 09/20/22 15:26 ABG O2 Saturation 97.8 % (94-97) H 09/20/22 15:26 Abnormal lab findings: Abnormal Labs 09/20/22 09/20/22 09/20/22 12:54 14:33 14:33 WBC 20.0 H Hct 49.0 H MCHC 30.6 L Neutrophils # 18.4 H Lymphocytes # 0.9 L ABG pH ABG pCO2 ABG pO2 ABG O2 Saturation Sodium 136 L Potassium 5.2 H Chloride Carbon Dioxide <5 L* BUN 19 H Glucose 526 H* POC Glucose (mg/dL) 449 H Calcium Delta Bilirubin Alkaline Phosphatase 150 H Total Protein Urine Appearance Urine Protein Urine Glucose (UA) Urine Ketones Ur Leukocyte Esterase Urine WBC Ur Squamous Epith Cells Amorphous Sediment Urine Bacteria Urine Mucus 09/20/22 09/20/22 09/20/22 14:33 15:26 17:01 WBC Hct MCHC Neutrophils # Lymphocytes # ABG pH 6.94 L* ABG pCO2 <15 L* ABG pO2 136 H ABG O2 Saturation 97.8 H Sodium Potassium Chloride Carbon Dioxide BUN Glucose POC Glucose (mg/dL) 410 H Calcium Delta Bilirubin Alkaline Phosphatase Total Protein Urine Appearance Cloudy H Urine Protein Trace H Urine Glucose (UA) 4+ H Urine Ketones 4+ H Ur Leukocyte Esterase Large H Urine WBC 50 H Ur Squamous Epith Cells 5 H Amorphous Sediment Few H Urine Bacteria Occasional H Urine Mucus Rare H 09/20/22 09/20/22 09/20/22 18:07 18:33 18:38 WBC Hct MCHC Neutrophils # Lymphocytes # ABG pH ABG pCO2 ABG pO2 ABG O2 Saturation Sodium Potassium Chloride 116 H Carbon Dioxide 5 L* BUN 18 H Glucose 316 H POC Glucose (mg/dL) 299 H 259 H Calcium Delta Bilirubin Alkaline Phosphatase Total Protein Urine Appearance Urine Protein Urine Glucose (UA) Urine Ketones Ur Leukocyte Esterase Urine WBC Ur Squamous Epith Cells Amorphous Sediment Urine Bacteria Urine Mucus 09/20/22 09/20/22 09/20/22 19:10 20:34 21:53 WBC Hct MCHC Neutrophils # Lymphocytes # ABG pH ABG pCO2 ABG pO2 ABG O2 Saturation Sodium Potassium Chloride Carbon Dioxide BUN Glucose POC Glucose (mg/dL) 309 H 245 H 209 H Calcium Delta Bilirubin Alkaline Phosphatase Total Protein Urine Appearance Urine Protein Urine Glucose (UA) Urine Ketones Ur Leukocyte Esterase Urine WBC Ur Squamous Epith Cells Amorphous Sediment Urine Bacteria Urine Mucus 09/20/22 09/20/22 09/21/22 22:43 23:01 00:10 WBC Hct MCHC Neutrophils # Lymphocytes # ABG pH ABG pCO2 ABG pO2 ABG O2 Saturation Sodium Potassium Chloride 119 H Carbon Dioxide 7 L* BUN Glucose 224 H POC Glucose (mg/dL) 216 H 194 H Calcium Delta Bilirubin Alkaline Phosphatase Total Protein Urine Appearance Urine Protein Urine Glucose (UA) Urine Ketones Ur Leukocyte Esterase Urine WBC Ur Squamous Epith Cells Amorphous Sediment Urine Bacteria Urine Mucus 09/21/22 09/21/22 09/21/22 01:17 02:51 04:53 WBC Hct MCHC Neutrophils # Lymphocytes # ABG pH ABG pCO2 ABG pO2 ABG O2 Saturation Sodium Potassium Chloride Carbon Dioxide BUN Glucose POC Glucose (mg/dL) 152 H 145 H 149 H Calcium Delta Bilirubin Alkaline Phosphatase Total Protein Urine Appearance Urine Protein Urine Glucose (UA) Urine Ketones Ur Leukocyte Esterase Urine WBC Ur Squamous Epith Cells Amorphous Sediment Urine Bacteria Urine Mucus 09/21/22 09/21/22 09/21/22 05:58 06:51 08:00 WBC Hct MCHC Neutrophils # Lymphocytes # ABG pH ABG pCO2 ABG pO2 ABG O2 Saturation Sodium Potassium Chloride Carbon Dioxide BUN Glucose POC Glucose (mg/dL) 166 H 169 H 176 H Calcium Delta Bilirubin Alkaline Phosphatase Total Protein Urine Appearance Urine Protein Urine Glucose (UA) Urine Ketones Ur Leukocyte Esterase Urine WBC Ur Squamous Epith Cells Amorphous Sediment Urine Bacteria Urine Mucus 09/21/22 09/21/22 09/21/22 08:39 09:02 09:59 WBC Hct MCHC Neutrophils # Lymphocytes # ABG pH ABG pCO2 ABG pO2 ABG O2 Saturation Sodium Potassium Chloride 118 H Carbon Dioxide 11 L BUN Glucose 226 H POC Glucose (mg/dL) 221 H 241 H Calcium 8.2 L Delta Bilirubin 0.4 H Alkaline Phosphatase Total Protein 5.7 L Urine Appearance Urine Protein Urine Glucose (UA) Urine Ketones Ur Leukocyte Esterase Urine WBC Ur Squamous Epith Cells Amorphous Sediment Urine Bacteria Urine Mucus - Diagnostic Findings Chest x-ray: image reviewed Assessment and Plan Assessment: Acute diabetic ketoacidosis secondary to nausea vomiting or appetite Anion gap metabolic acidosis secondary to above Diabetes mellitus, insulin-dependent Urinary tract infection, currently on ceftriaxone Previous admissions for DKA mainly at [facility] Plan: The patient was seen and evaluated Chest x-ray, labs and medications reviewed Continue with the DKA protocol Could be transferred out of the ICU once her gap is closed Transition back to her home medications We will continue to follow and make further recommendations based on her clinical status I have personally seen and examined the patient, performed the documentation and the assessment and plan as written. Number of minutes spent on the visit: 20.
[2022-09-21 11:49] LABS: Glucose,Whole Blood 260 mg/dL (70-110)
[2022-09-21 12:12] LABS: Glucose,Whole Blood 238 mg/dL (70-110)
[2022-09-21 13:08] LABS: Glucose,Whole Blood 239 mg/dL (70-110)
[2022-09-21 14:42] LABS: Glucose,Whole Blood 252 mg/dL (70-110)
[2022-09-21 15:16] LABS: Eosinophils # (M) 0.13 k/uL (0-0.7); Lymphocytes # (M) 0.64 k/uL (1.0-4.8); Monocytes # (M) 0.51 k/uL (0-1.0); Neutrophils # (M) 11.52 k/uL (1.3-7.7); Neutrophils % (M) 90 %; Nucleated Red Blood Cells 0 /100 WBC (0-0); Total Cells Counted 100
[2022-09-21 15:20] LABS: African American GFR (CKD) >90 (>60 ml/min/1.73 sqM); Anion Gap 11 mmol/L; Blood Urea Nitrogen 12 mg/dL (7-17); Calcium 8.3 mg/dL (8.4-10.2); Carbon Dioxide 11 mmol/L (22-30); Chloride 116 mmol/L (98-107); Glucose 273 mg/dL (74-99); Non-African American GFR(CKD) >90 (>60 ml/min/1.73 sqM); Phosphorus 1.7 mg/dL (2.5-4.5); Potassium 4.1 mmol/L (3.5-5.1); Sodium 138 mmol/L (137-145)
[2022-09-21 15:25] LABS: Glucose,Whole Blood 282 mg/dL (70-110)
[2022-09-21] MEDS: INSULIN REGULAR 100 UNIT in SODIUM CHLORIDE 0.9% 100 ML IV SCH (16:04)
[2022-09-21] MEDS ORDERED: Phosphorus Replacement Protoco 1 EACH MISC MISCELLANE PRN (16:06)
[2022-09-21 16:11] LABS: Glucose,Whole Blood 228 mg/dL (70-110)
[2022-09-21 17:03] LABS: Glucose,Whole Blood 258 mg/dL (70-110)
[2022-09-21] MEDS: SODIUM PHOSPHATE 10 MMOL in SODIUM CHLORIDE 0.9% 250 ML IVPB SCH ×2 (17:37→21:05)
[2022-09-21 18:32] LABS: Glucose,Whole Blood 215 mg/dL (70-110)
[2022-09-21 20:21] LABS: Glucose,Whole Blood 200 mg/dL (70-110)
[2022-09-21 20:56] LABS: African American GFR (CKD) >90 (>60 ml/min/1.73 sqM); Anion Gap 8 mmol/L; Blood Urea Nitrogen 9 mg/dL (7-17); Calcium 7.7 mg/dL (8.4-10.2); Carbon Dioxide 13 mmol/L (22-30); Chloride 115 mmol/L (98-107); Glucose 189 mg/dL (74-99); Non-African American GFR(CKD) >90 (>60 ml/min/1.73 sqM); Potassium 3.9 mmol/L (3.5-5.1); Sodium 136 mmol/L (137-145)
[2022-09-21 21:17] LABS: Glucose,Whole Blood 195 mg/dL (70-110)
[2022-09-21 21:57] LABS: Glucose,Whole Blood 140 mg/dL (70-110)
[2022-09-21 23:06] LABS: Glucose,Whole Blood 118 mg/dL (70-110)
[2022-09-21 23:47] LABS: Glucose,Whole Blood 192 mg/dL (70-110)
[2022-09-22] MEDS: INSULIN REGULAR 100 UNIT in SODIUM CHLORIDE 0.9% 100 ML IV SCH (00:06)
[2022-09-22] MEDS: D5-0.45% NACL WITH KCL 20MEQ/L 1,000 ML IV SCH ×2 (00:07→07:01)
[2022-09-22 00:48] LABS: African American GFR (CKD) >90 (>60 ml/min/1.73 sqM); Anion Gap 8 mmol/L; Blood Urea Nitrogen 7 mg/dL (7-17); Calcium 7.3 mg/dL (8.4-10.2); Carbon Dioxide 12 mmol/L (22-30); Chloride 114 mmol/L (98-107); Glucose 241 mg/dL (74-99); Non-African American GFR(CKD) >90 (>60 ml/min/1.73 sqM); Potassium 3.4 mmol/L (3.5-5.1); Sodium 134 mmol/L (137-145)
[2022-09-22 00:53] LABS: Glucose,Whole Blood 232 mg/dL (70-110)
[2022-09-22] MEDS ORDERED: Potassium Replacement Protocol 1 EACH MISC MISCELLANE PRN (01:03)
[2022-09-22] MEDS: POTASSIUM CHLORIDE ER 20 MEQ TAB.ER PO SCH ×2 (01:23→03:18)
[2022-09-22 02:03] LABS: Glucose,Whole Blood 273 mg/dL (70-110)
[2022-09-22 03:24] LABS: Glucose,Whole Blood 251 mg/dL (70-110)
[2022-09-22 04:18] LABS: HCT 34.1 % (34.0-46.0); Hypochromasia Moderate; MCH 28.9 pg (25.0-35.0); MCHC 32.4 g/dL (31.0-37.0); Mean Platelet Volume 7.9; Platelet Count 190 k/uL (150-450); RBC 3.84 m/uL (3.80-5.40); RDW 13.5 % (11.5-15.5); WBC 9.6 k/uL (3.8-10.6)
[2022-09-22 04:31] LABS: Magnesium 1.9 mg/dL (1.6-2.3); Phosphorus 2.1 mg/dL (2.5-4.5)
[2022-09-22 04:32] LABS: Glucose,Whole Blood 230 mg/dL (70-110)
[2022-09-22 04:58] LABS: HGB 11.1 gm/dL (11.4-16.0)
[2022-09-22 05:11] LABS: ALT 12 U/L (4-34); AST 13 U/L (14-36); Albumin 2.7 g/dL (3.5-5.0); Alkaline Phosphatase 81 U/L (38-126); Total Bilirubin 0.4 mg/dL (0.2-1.3); Total Protein 4.8 g/dL (6.3-8.2)
[2022-09-22 05:25] LABS: Glucose,Whole Blood 222 mg/dL (70-110)
[2022-09-22 06:49] LABS: Glucose,Whole Blood 168 mg/dL (70-110)
[2022-09-22 07:58] LABS: Glucose,Whole Blood 152 mg/dL (70-110)
[2022-09-22 08:09] LABS: HCT 36.6 % (34.0-46.0); HGB 11.8 gm/dL (11.4-16.0); MCH 28.2 pg (25.0-35.0); MCHC 32.2 g/dL (31.0-37.0); MCV 87.6 fL (80.0-100.0); Mean Platelet Volume 7.8; Platelet Count 193 k/uL (150-450); RBC 4.18 m/uL (3.80-5.40); RDW 13.8 % (11.5-15.5); WBC 7.5 k/uL (3.8-10.6)
[2022-09-22 08:22] LABS: ALT 12 U/L (4-34); AST 13 U/L (14-36); African American GFR (CKD) >90 (>60 ml/min/1.73 sqM); Albumin 2.6 g/dL (3.5-5.0); Alkaline Phosphatase 85 U/L (38-126); Anion Gap 2 mmol/L; Blood Urea Nitrogen 5 mg/dL (7-17); Calcium 7.3 mg/dL (8.4-10.2); Carbon Dioxide 18 mmol/L (22-30); Chloride 114 mmol/L (98-107); Glucose 166 mg/dL (74-99); Magnesium 1.8 mg/dL (1.6-2.3); Non-African American GFR(CKD) >90 (>60 ml/min/1.73 sqM); Phosphorus 1.6 mg/dL (2.5-4.5); Potassium 3.7 mmol/L (3.5-5.1); Sodium 134 mmol/L (137-145); Total Bilirubin 0.8 mg/dL (0.2-1.3); Total Protein 4.7 g/dL (6.3-8.2)
[2022-09-22 09:02] LABS: Glucose,Whole Blood 140 mg/dL (70-110)
[2022-09-22] MEDS: FAMOTIDINE 20 MG/2 ML VIAL IV SCH ×2 (09:28→21:08)
[2022-09-22] MEDS: HEPARIN SODIUM,PORCINE/PF 5,000 UNIT/0.5 ML SYRINGE SQ SCH ×2 (09:28→21:07)
[2022-09-22 09:58] LABS: Glucose,Whole Blood 153 mg/dL (70-110)
[2022-09-22] MEDS ORDERED: POTASSIUM CHLORIDE ER 20 MEQ TAB.ER PO SCH (10:00)
[2022-09-22] MEDS: MAGNESIUM SULFATE-D5W PMX 1 GM in DEXTROSE/WATER 1 100ML.BAG IVPB SCH ×2 (10:34→12:59)
[2022-09-22 10:55] VITALS: BMI 24.0
[2022-09-22 11:05] LABS: Glucose,Whole Blood 149 mg/dL (70-110)
--- NOTE | 2022-09-22 11:05 | P.PN ---
Subjective Progress Note Date: 09/22/22 Principal diagnosis: Diabetic ketoacidosis This is a very pleasant 41-year-old female patient who follows with Dr. Rojas as her primary care provider. She has a history of insulin-dependent diabetes mellitus. She has had 3 prior admissions for DKA to [facility]. She presented here to our emergency room yesterday with complaints of nausea, diffuse muscle aches, poor appetite and could not control her blood sugar levels at home. She is on Lantus Solostar pen 26 units at bedtime along with NovoLog Flex pen 3 times a day with meals. Initial glucose here was 526. Bicarb less than 5. Anion gap of 24. Urinalysis with 4+ glucose. 4+ ketones. Acetone positive. Blood gases revealed a pO2 of 136, pCO2 less than 15, pH 6.95 on 21% FiO2. She was admitted to the intensive care unit and started on the DKA protocol. She is seen today in consultation. She is currently resting comfortably in bed. Awake and alert in no acute distress. She is maintaining good O2 saturations in the 90s on room air. Insulin drip at 1.55 units per hour. D5 W with 0.45 saline and 20 of KCl at 150 ML's per hour. Urinalysis also showed possible UTI and she is currently on ceftriaxone. White count 20.0. Hemoglobin 15.0. Sodium 142. Potassium 4.6. Chloride 118. Bicarb 11. Anion gap 13. BUN 14. Creatinine 0.60. Glucose 241. Started on heparin for DVT prophylaxis. Pepcid for GI prophylaxis. The patient is seen today 09/22/2022 in follow-up in the intensive care unit. She is awake and alert in no acute distress. Doing better today compared to yesterday. Glucoses improved to 140. Bicarb 18. Anion gap 2. She is maintaining good O2 saturations in the 90s on room air. She is still on an insulin drip at 1.3 units per hour. D5.45 normal saline at with 20 mEq KCl at 150 ML's per hour. Urine culture revealed no growth. White count 10.5. Hemoglobin 11.8. Sodium 134. Potassium 3.7. BUN 5. Creatinine 0.53. She is continued on ceftriaxone. Heparin for DVT prophylaxis. Objective - Vital Signs Vital signs: Vital Signs Temp 98.4 F 09/22/22 08:00 Pulse 105 H 09/22/22 10:00 Resp 16 09/22/22 10:00 BP 129/79 09/22/22 10:00 Pulse Ox 99 09/22/22 10:00 FiO2 Intake & Output 09/21/22 09/22/22 09/22/22 18:59 06:59 18:59 Intake Total 2274.588 1820.522 590.048 Output Total 1700 0 1450 Balance 933.843 6280.522 -859.952 Weight 64.4 kg 65.5 kg 65.5 kg Intake: IV 2250 1800 575 D5-0.45% NaCl with KCl 1800 1500 525 20Meq/l 1,000 ml @ 150 mls/hr IV .Q6H40M [facility]OM Rx# :[id number] Magnesium Sulfate-D5w Pmx 200 1 gm In Dextrose/Water 1 100ml.bag @ 100 mls/hr IVPB Q1H BOOM Rx#: [id number] Sodium Phosphate 10 mmol 250 300 In Sodium Chloride 0.9% 250 ml @ 125 mls/hr IVPB Q2H [facility]OM Rx#:[id number] cefTRIAXone 1 gm In 50 Sodium Chloride 0.9% 50 ml @ 100 mls/hr IVPB Q24HR BOOM Rx#:[id number] Intake, IV Titration 24.588 20.522 15.048 Amount Insulin Regular 100 unit 24.588 20.522 15.048 In Sodium Chloride 0.9% 100 ml @ 0.1 UNITS/KG/HR 6.185 mls/hr IV .[id number] BOOM Rx#:[id number] Output: Urine 1700 0 1450 Other: Voiding Method Toilet Toilet # Voids 1 - Exam GENERAL EXAM: Alert, pleasant 41-year-old female, on room air, comfortable in no apparent distress. HEAD: Normocephalic. EYES: Normal reaction of pupils, equal size. NOSE: Clear with pink turbinates. THROAT: No erythema or exudates. NECK: No masses, no JVD. CHEST: No chest wall deformity. LUNGS: Equal air entry with no crackles, wheeze, rhonchi or dullness. CVS: S1 and S2 normal with no audible murmur, regular rhythm. ABDOMEN: No hepatosplenomegaly, normal bowel sounds, no guarding or rigidity. SPINE: No scoliosis or deformity SKIN: No rashes CENTRAL NERVOUS SYSTEM: No focal deficits, tone is normal in all 4 extremities. EXTREMITIES: There is no peripheral edema. No clubbing, no cyanosis. Peripheral pulses are intact. - Labs CBC & Chem 7: 09/22/22 07:51 09/22/22 07:51 Labs: Abnormal Lab Results - Last 24 Hours (Table) 09/21/22 09/21/22 09/21/22 Range/Units 08:38 08:38 08:39 WBC 12.8 H (3.8-10.6) k/uL Hgb (11.4-16.0) gm/dL Neutrophils # (Manual) 11.52 H (1.3-7.7) k/uL Lymphocytes # (Manual) 0.64 L (1.0-4.8) k/uL Sodium (137-145) mmol/L Potassium (3.5-5.1) mmol/L Chloride (98-107) mmol/L Carbon Dioxide (22-30) mmol/L BUN (7-17) mg/dL Creatinine (0.52-1.04) mg/dL Glucose (74-99) mg/dL POC Glucose (mg/dL) (70-110) mg/dL Hemoglobin A1c 12.0 H (0.0-6.0) % Calcium (8.4-10.2) mg/dL Phosphorus (2.5-4.5) mg/dL AST (14-36) U/L Total Protein (6.3-8.2) g/dL Albumin (3.5-5.0) g/dL Procalcitonin 0.74 H (0.02-0.09) ng/mL 09/21/22 09/21/22 09/21/22 Range/Units 11:47 12:10 13:06 WBC (3.8-10.6) k/uL Hgb (11.4-16.0) gm/dL Neutrophils # (Manual) (1.3-7.7) k/uL Lymphocytes # (Manual) (1.0-4.8) k/uL Sodium (137-145) mmol/L Potassium (3.5-5.1) mmol/L Chloride (98-107) mmol/L Carbon Dioxide (22-30) mmol/L BUN (7-17) mg/dL Creatinine (0.52-1.04) mg/dL Glucose (74-99) mg/dL POC Glucose (mg/dL) 260 H 238 H 239 H (70-110) mg/dL Hemoglobin A1c (0.0-6.0) % Calcium (8.4-10.2) mg/dL Phosphorus (2.5-4.5) mg/dL AST (14-36) U/L Total Protein (6.3-8.2) g/dL Albumin (3.5-5.0) g/dL Procalcitonin (0.02-0.09) ng/mL 09/21/22 09/21/22 09/21/22 Range/Units 14:35 14:40 15:24 WBC (3.8-10.6) k/uL Hgb (11.4-16.0) gm/dL Neutrophils # (Manual) (1.3-7.7) k/uL Lymphocytes # (Manual) (1.0-4.8) k/uL Sodium (137-145) mmol/L Potassium (3.5-5.1) mmol/L Chloride 116 H (98-107) mmol/L Carbon Dioxide 11 L (22-30) mmol/L BUN (7-17) mg/dL Creatinine (0.52-1.04) mg/dL Glucose 273 H (74-99) mg/dL POC Glucose (mg/dL) 252 H 282 H (70-110) mg/dL Hemoglobin A1c (0.0-6.0) % Calcium 8.3 L (8.4-10.2) mg/dL Phosphorus 1.7 L (2.5-4.5) mg/dL AST (14-36) U/L Total Protein (6.3-8.2) g/dL Albumin (3.5-5.0) g/dL Procalcitonin (0.02-0.09) ng/mL 09/21/22 09/21/22 09/21/22 Range/Units 16:10 17:02 18:30 WBC (3.8-10.6) k/uL Hgb (11.4-16.0) gm/dL Neutrophils # (Manual) (1.3-7.7) k/uL Lymphocytes # (Manual) (1.0-4.8) k/uL Sodium (137-145) mmol/L Potassium (3.5-5.1) mmol/L Chloride (98-107) mmol/L Carbon Dioxide (22-30) mmol/L BUN (7-17) mg/dL Creatinine (0.52-1.04) mg/dL Glucose (74-99) mg/dL POC Glucose (mg/dL) 228 H 258 H 215 H (70-110) mg/dL Hemoglobin A1c (0.0-6.0) % Calcium (8.4-10.2) mg/dL Phosphorus (2.5-4.5) mg/dL AST (14-36) U/L Total Protein (6.3-8.2) g/dL Albumin (3.5-5.0) g/dL Procalcitonin (0.02-0.09) ng/mL 09/21/22 09/21/22 09/21/22 Range/Units 20:01 20:20 21:16 WBC (3.8-10.6) k/uL Hgb (11.4-16.0) gm/dL Neutrophils # (Manual) (1.3-7.7) k/uL Lymphocytes # (Manual) (1.0-4.8) k/uL Sodium 136 L (137-145) mmol/L Potassium (3.5-5.1) mmol/L Chloride 115 H (98-107) mmol/L Carbon Dioxide 13 L (22-30) mmol/L BUN (7-17) mg/dL Creatinine 0.46 L (0.52-1.04) mg/dL Glucose 189 H (74-99) mg/dL POC Glucose (mg/dL) 200 H 195 H (70-110) mg/dL Hemoglobin A1c (0.0-6.0) % Calcium 7.7 L (8.4-10.2) mg/dL Phosphorus (2.5-4.5) mg/dL AST (14-36) U/L Total Protein (6.3-8.2) g/dL Albumin (3.5-5.0) g/dL Procalcitonin (0.02-0.09) ng/mL 09/21/22 09/21/22 09/21/22 Range/Units 21:56 23:04 23:46 WBC (3.8-10.6) k/uL Hgb (11.4-16.0) gm/dL Neutrophils # (Manual) (1.3-7.7) k/uL Lymphocytes # (Manual) (1.0-4.8) k/uL Sodium (137-145) mmol/L Potassium (3.5-5.1) mmol/L Chloride (98-107) mmol/L Carbon Dioxide (22-30) mmol/L BUN (7-17) mg/dL Creatinine (0.52-1.04) mg/dL Glucose (74-99) mg/dL POC Glucose (mg/dL) 140 H 118 H 192 H (70-110) mg/dL Hemoglobin A1c (0.0-6.0) % Calcium (8.4-10.2) mg/dL Phosphorus (2.5-4.5) mg/dL AST (14-36) U/L Total Protein (6.3-8.2) g/dL Albumin (3.5-5.0) g/dL Procalcitonin (0.02-0.09) ng/mL 09/22/22 09/22/22 09/22/22 Range/Units 00:16 00:52 02:01 WBC (3.8-10.6) k/uL Hgb (11.4-16.0) gm/dL Neutrophils # (Manual) (1.3-7.7) k/uL Lymphocytes # (Manual) (1.0-4.8) k/uL Sodium 134 L (137-145) mmol/L Potassium 3.4 L (3.5-5.1) mmol/L Chloride 114 H (98-107) mmol/L Carbon Dioxide 12 L (22-30) mmol/L BUN (7-17) mg/dL Creatinine 0.41 L (0.52-1.04) mg/dL Glucose 241 H (74-99) mg/dL POC Glucose (mg/dL) 232 H 273 H (70-110) mg/dL Hemoglobin A1c (0.0-6.0) % Calcium 7.3 L (8.4-10.2) mg/dL Phosphorus (2.5-4.5) mg/dL AST 13 L (14-36) U/L Total Protein 4.8 L (6.3-8.2) g/dL Albumin 2.7 L (3.5-5.0) g/dL Procalcitonin (0.02-0.09) ng/mL 09/22/22 09/22/22 09/22/22 Range/Units 03:23 03:59 03:59 WBC (3.8-10.6) k/uL Hgb 11.1 L D (11.4-16.0) gm/dL Neutrophils # (Manual) (1.3-7.7) k/uL Lymphocytes # (Manual) (1.0-4.8) k/uL Sodium (137-145) mmol/L Potassium (3.5-5.1) mmol/L Chloride (98-107) mmol/L Carbon Dioxide (22-30) mmol/L BUN (7-17) mg/dL Creatinine (0.52-1.04) mg/dL Glucose (74-99) mg/dL POC Glucose (mg/dL) 251 H (70-110) mg/dL Hemoglobin A1c (0.0-6.0) % Calcium (8.4-10.2) mg/dL Phosphorus 2.1 L (2.5-4.5) mg/dL AST (14-36) U/L Total Protein (6.3-8.2) g/dL Albumin (3.5-5.0) g/dL Procalcitonin (0.02-0.09) ng/mL 09/22/22 09/22/22 09/22/22 Range/Units 04:30 05:24 06:48 WBC (3.8-10.6) k/uL Hgb (11.4-16.0) gm/dL Neutrophils # (Manual) (1.3-7.7) k/uL Lymphocytes # (Manual) (1.0-4.8) k/uL Sodium (137-145) mmol/L Potassium (3.5-5.1) mmol/L Chloride (98-107) mmol/L Carbon Dioxide (22-30) mmol/L BUN (7-17) mg/dL Creatinine (0.52-1.04) mg/dL Glucose (74-99) mg/dL POC Glucose (mg/dL) 230 H 222 H 168 H (70-110) mg/dL Hemoglobin A1c (0.0-6.0) % Calcium (8.4-10.2) mg/dL Phosphorus (2.5-4.5) mg/dL AST (14-36) U/L Total Protein (6.3-8.2) g/dL Albumin (3.5-5.0) g/dL Procalcitonin (0.02-0.09) ng/mL 09/22/22 09/22/22 09/22/22 Range/Units 07:51 07:56 09:00 WBC (3.8-10.6) k/uL Hgb (11.4-16.0) gm/dL Neutrophils # (Manual) (1.3-7.7) k/uL Lymphocytes # (Manual) (1.0-4.8) k/uL Sodium 134 L (137-145) mmol/L Potassium (3.5-5.1) mmol/L Chloride 114 H (98-107) mmol/L Carbon Dioxide 18 L (22-30) mmol/L BUN 5 L (7-17) mg/dL Creatinine 0.43 L (0.52-1.04) mg/dL Glucose 166 H (74-99) mg/dL POC Glucose (mg/dL) 152 H 140 H (70-110) mg/dL Hemoglobin A1c (0.0-6.0) % Calcium 7.3 L (8.4-10.2) mg/dL Phosphorus 1.6 L (2.5-4.5) mg/dL AST 13 L (14-36) U/L Total Protein 4.7 L (6.3-8.2) g/dL Albumin 2.6 L (3.5-5.0) g/dL Procalcitonin (0.02-0.09) ng/mL 09/22/22 Range/Units 09:57 WBC (3.8-10.6) k/uL Hgb (11.4-16.0) gm/dL Neutrophils # (Manual) (1.3-7.7) k/uL Lymphocytes # (Manual) (1.0-4.8) k/uL Sodium (137-145) mmol/L Potassium (3.5-5.1) mmol/L Chloride (98-107) mmol/L Carbon Dioxide (22-30) mmol/L BUN (7-17) mg/dL Creatinine (0.52-1.04) mg/dL Glucose (74-99) mg/dL POC Glucose (mg/dL) 153 H (70-110) mg/dL Hemoglobin A1c (0.0-6.0) % Calcium (8.4-10.2) mg/dL Phosphorus (2.5-4.5) mg/dL AST (14-36) U/L Total Protein (6.3-8.2) g/dL Albumin (3.5-5.0) g/dL Procalcitonin (0.02-0.09) ng/mL Microbiology - Last 24 Hours (Table) 09/20/22 14:33 Urine Culture - Final Urine,Voided Assessment and Plan Assessment: Acute diabetic ketoacidosis secondary to nausea, vomiting, poor appetite Anion gap metabolic acidosis secondary to above, recovered with anion gap of 2 Diabetes mellitus, insulin-dependent Urinary tract infection suspected, cultures reveal no growth, discontinue ceftriaxone Previous admissions for DKA mainly at [facility] Plan: The patient was seen and evaluated Labs and medications reviewed Transition to her home insulin dose Could be transferred out of the ICU Urine culture revealed no growth, discontinue ceftriaxone We will continue to follow I have personally seen and examined the patient, performed the documentation and the assessment and plan as written. Number of minutes spent on the visit: 10.
[2022-09-22 12:41] LABS: Glucose,Whole Blood 157 mg/dL (70-110)
[2022-09-22] MEDS ORDERED: DEXTROSE 50% SYRINGE 50 ML IVP PRN ×2 (13:13)
[2022-09-22 14:00] LABS: Glucose,Whole Blood 206 mg/dL (70-110)
[2022-09-22] MEDS: POTASSIUM PHOSPHATE 10 MMOL in SODIUM CHLORIDE 0.9% 250 ML IV SCH ×2 (14:01→16:16)
[2022-09-22 17:13] LABS: Glucose,Whole Blood 361 mg/dL (70-110)
[2022-09-22] MEDS: INSULIN ASPART (NovoLOG) 100 UNIT/ML VIAL SQ SCH ×3 (17:41→21:07)
[2022-09-22 20:55] LABS: Glucose,Whole Blood 439 mg/dL (70-110)
--- NOTE | 2022-09-22 20:55 | P.PN ---
Subjective This is a pleasant 41 years old female with past medical history of diabetes mellitus, insulin-dependent on Lantus presents because she was feeling her sugar high she was feeling nauseated with leg cramps. patient is a known diabetic on lantus insulin at 26 units daily and humolog insulin per sliding scale , yesterday evening patient was getting more tired with nausea and week and she gets a feeling that her sugar high when she checked and it was 557 she took extra dose of insulin and into hours went down to 327, and the morning was high again and take extra more and she felt better a little bit but then she got worse and decided to come to emergency room Patient is fully awake and oriented 3. She is very tachypneic but denies any chest pain or coughing or dyspnea. No abdominal pain or vomiting. She denies diarrhea. She denies urinary complaints, no fever. No headache or dizziness or weakness or numbness. No problem with her menstrual cycle. No vaginal discharge. She denies also smoking alcohol or illicit drugs On admission her Vitas looks stable and patient is afebrile . Patient is tachycardic and tachypneic however patient saturates 98% on room air showing leukocytosis 20,000, supple looks dehydrated. PH is low at 6.9 and pCO2 less than 15 while prior to 136. Sodium 136, potassium 5.2, creatinine normal 0.8. Glucose elevated 526. Liver enzymes and bilirubin normal. Urinalysis is suspicious for UTI. Acetone is positive. HCG serum is negative EKG shows sinus tachycardia at [address]-T changes In the emergency room she received 2 L of normal saline, sodium bicarb and started on insulin drip per protocol 09/21/2022 Patient is awake alert, looks more comfortable today, more calm and relaxed. No nonhypertensive. Tachypnea has resolved.She still tachycardic with heart rate around 117 Her sugars better controlled and her neck Is this morning at 13. Specimen vitals are stable WBC was 20,000 yesterday, today lab are pending. She is also on ceftriaxone for possible UTI, no more symptoms and urine culture is pending. Continue with of the fluid and insulin drip this morning hopefully would be able to switch it to longer acting insulin with sliding scale and then the patient started eating today 09/22/2022 Patient improving each day and today she is more stable and, hemodynamically she denies any other symptoms, she only mildly generally weak but significantly improved since admission No other complaint no chest pain or dyspnea, no weakness or negative and antibiotic was discontinued. There is no obvious reason for the patient going into diabetic ketoacidosis abdomen and uncontrolled diabetes R undertreatment therefore we instructed patient to start using insulin with meals and she agrees. She was taken Levemir 26 units at bedtime, but going to change it to Levemir 20 units at 3 units with meals, however patient might need higher doses as she started picking up her eat ing habits. Objective - Vital Signs Vital signs: Vital Signs Temp 98.4 F 09/22/22 12:00 Pulse 106 H 09/22/22 13:00 Resp 16 09/22/22 13:00 BP 138/87 09/22/22 13:00 Pulse Ox 97 09/22/22 12:00 FiO2 Intake & Output 09/21/22 09/22/22 09/22/22 18:59 06:59 18:59 Intake Total 2274.588 3077.389 1945.048 Output Total 1700 0 2450 Balance 809.927 3724.522 -1409.952 Weight 64.4 kg 65.5 kg 65.5 kg Intake: IV 2250 1800 1025 D5-0.45% NaCl with KCl 1800 1500 975 20Meq/l 1,000 ml @ 150 mls/hr IV .Q6H40M [facility]OM Rx# :[id number] Magnesium Sulfate-D5w Pmx 200 1 gm In Dextrose/Water 1 100ml.bag @ 100 mls/hr IVPB Q1H BOOM Rx#: [id number] Sodium Phosphate 10 mmol 250 300 In Sodium Chloride 0.9% 250 ml @ 125 mls/hr IVPB Q2H BOOM Rx#:[id number] cefTRIAXone 1 gm In 50 Sodium Chloride 0.9% 50 ml @ 100 mls/hr IVPB Q24HR BOOM Rx#:[id number] Intake, IV Titration 24.588 20.522 15.048 Amount Insulin Regular 100 unit 24.588 20.522 15.048 In Sodium Chloride 0.9% 100 ml @ 0.1 UNITS/KG/HR 6.185 mls/hr IV .[id number] BOOM Rx#:[id number] Output: Urine 1700 0 2450 Other: Voiding Method Toilet Toilet # Voids 1 - Exam GENERAL: The patient is alert and oriented x3, not in any acute distress. Well developed, well nourished. HEENT: Pupils are round and equally reacting to light. EOMI. No scleral icterus. No conjunctival pallor. Normocephalic, atraumatic. No pharyngeal erythema. No thyromegaly. CARDIOVASCULAR: S1 and S2 present. No murmurs, rubs, or gallops. PULMONARY: Chest is clear to auscultation, no wheezing or crackles. ABDOMEN: Soft, nontender, nondistended, normoactive bowel sounds. No palpable organomegaly. MUSCULOSKELETAL: No joint swelling or deformity. EXTREMITIES: No cyanosis, clubbing, or pedal edema. NEUROLOGICAL: Gross neurological examination did not reveal any focal deficits. SKIN: No rashes. no petechiae. - Labs CBC & Chem 7: 09/22/22 07:51 09/22/22 07:51 Labs: Abnormal Lab Results - Last 24 Hours (Table) 09/21/22 09/21/22 09/21/22 Range/Units 08:38 08:38 08:39 Hgb (11.4-16.0) gm/dL Neutrophils # (Manual) 11.52 H (1.3-7.7) k/uL Lymphocytes # (Manual) 0.64 L (1.0-4.8) k/uL Sodium (137-145) mmol/L Potassium (3.5-5.1) mmol/L Chloride (98-107) mmol/L Carbon Dioxide (22-30) mmol/L BUN (7-17) mg/dL Creatinine (0.52-1.04) mg/dL Glucose (74-99) mg/dL POC Glucose (mg/dL) (70-110) mg/dL Hemoglobin A1c 12.0 H (0.0-6.0) % Calcium (8.4-10.2) mg/dL Phosphorus (2.5-4.5) mg/dL AST (14-36) U/L Total Protein (6.3-8.2) g/dL Albumin (3.5-5.0) g/dL Procalcitonin 0.74 H (0.02-0.09) ng/mL 09/21/22 09/21/22 09/21/22 Range/Units 14:35 14:40 15:24 Hgb (11.4-16.0) gm/dL Neutrophils # (Manual) (1.3-7.7) k/uL Lymphocytes # (Manual) (1.0-4.8) k/uL Sodium (137-145) mmol/L Potassium (3.5-5.1) mmol/L Chloride 116 H (98-107) mmol/L Carbon Dioxide 11 L (22-30) mmol/L BUN (7-17) mg/dL Creatinine (0.52-1.04) mg/dL Glucose 273 H (74-99) mg/dL POC Glucose (mg/dL) 252 H 282 H (70-110) mg/dL Hemoglobin A1c (0.0-6.0) % Calcium 8.3 L (8.4-10.2) mg/dL Phosphorus 1.7 L (2.5-4.5) mg/dL AST (14-36) U/L Total Protein (6.3-8.2) g/dL Albumin (3.5-5.0) g/dL Procalcitonin (0.02-0.09) ng/mL 09/21/22 09/21/22 09/21/22 Range/Units 16:10 17:02 18:30 Hgb (11.4-16.0) gm/dL Neutrophils # (Manual) (1.3-7.7) k/uL Lymphocytes # (Manual) (1.0-4.8) k/uL Sodium (137-145) mmol/L Potassium (3.5-5.1) mmol/L Chloride (98-107) mmol/L Carbon Dioxide (22-30) mmol/L BUN (7-17) mg/dL Creatinine (0.52-1.04) mg/dL Glucose (74-99) mg/dL POC Glucose (mg/dL) 228 H 258 H 215 H (70-110) mg/dL Hemoglobin A1c (0.0-6.0) % Calcium (8.4-10.2) mg/dL Phosphorus (2.5-4.5) mg/dL AST (14-36) U/L Total Protein (6.3-8.2) g/dL Albumin (3.5-5.0) g/dL Procalcitonin (0.02-0.09) ng/mL 09/21/22 09/21/22 09/21/22 Range/Units 20:01 20:20 21:16 Hgb (11.4-16.0) gm/dL Neutrophils # (Manual) (1.3-7.7) k/uL Lymphocytes # (Manual) (1.0-4.8) k/uL Sodium 136 L (137-145) mmol/L Potassium (3.5-5.1) mmol/L Chloride 115 H (98-107) mmol/L Carbon Dioxide 13 L (22-30) mmol/L BUN (7-17) mg/dL Creatinine 0.46 L (0.52-1.04) mg/dL Glucose 189 H (74-99) mg/dL POC Glucose (mg/dL) 200 H 195 H (70-110) mg/dL Hemoglobin A1c (0.0-6.0) % Calcium 7.7 L (8.4-10.2) mg/dL Phosphorus (2.5-4.5) mg/dL AST (14-36) U/L Total Protein (6.3-8.2) g/dL Albumin (3.5-5.0) g/dL Procalcitonin (0.02-0.09) ng/mL 09/21/22 09/21/22 09/21/22 Range/Units 21:56 23:04 23:46 Hgb (11.4-16.0) gm/dL Neutrophils # (Manual) (1.3-7.7) k/uL Lymphocytes # (Manual) (1.0-4.8) k/uL Sodium (137-145) mmol/L Potassium (3.5-5.1) mmol/L Chloride (98-107) mmol/L Carbon Dioxide (22-30) mmol/L BUN (7-17) mg/dL Creatinine (0.52-1.04) mg/dL Glucose (74-99) mg/dL POC Glucose (mg/dL) 140 H 118 H 192 H (70-110) mg/dL Hemoglobin A1c (0.0-6.0) % Calcium (8.4-10.2) mg/dL Phosphorus (2.5-4.5) mg/dL AST (14-36) U/L Total Protein (6.3-8.2) g/dL Albumin (3.5-5.0) g/dL Procalcitonin (0.02-0.09) ng/mL 09/22/22 09/22/22 09/22/22 Range/Units 00:16 00:52 02:01 Hgb (11.4-16.0) gm/dL Neutrophils # (Manual) (1.3-7.7) k/uL Lymphocytes # (Manual) (1.0-4.8) k/uL Sodium 134 L (137-145) mmol/L Potassium 3.4 L (3.5-5.1) mmol/L Chloride 114 H (98-107) mmol/L Carbon Dioxide 12 L (22-30) mmol/L BUN (7-17) mg/dL Creatinine 0.41 L (0.52-1.04) mg/dL Glucose 241 H (74-99) mg/dL POC Glucose (mg/dL) 232 H 273 H (70-110) mg/dL Hemoglobin A1c (0.0-6.0) % Calcium 7.3 L (8.4-10.2) mg/dL Phosphorus (2.5-4.5) mg/dL AST 13 L (14-36) U/L Total Protein 4.8 L (6.3-8.2) g/dL Albumin 2.7 L (3.5-5.0) g/dL Procalcitonin (0.02-0.09) ng/mL 09/22/22 09/22/22 09/22/22 Range/Units 03:23 03:59 03:59 Hgb 11.1 L D (11.4-16.0) gm/dL Neutrophils # (Manual) (1.3-7.7) k/uL Lymphocytes # (Manual) (1.0-4.8) k/uL Sodium (137-145) mmol/L Potassium (3.5-5.1) mmol/L Chloride (98-107) mmol/L Carbon Dioxide (22-30) mmol/L BUN (7-17) mg/dL Creatinine (0.52-1.04) mg/dL Glucose (74-99) mg/dL POC Glucose (mg/dL) 251 H (70-110) mg/dL Hemoglobin A1c (0.0-6.0) % Calcium (8.4-10.2) mg/dL Phosphorus 2.1 L (2.5-4.5) mg/dL AST (14-36) U/L Total Protein (6.3-8.2) g/dL Albumin (3.5-5.0) g/dL Procalcitonin (0.02-0.09) ng/mL 09/22/22 09/22/22 09/22/22 Range/Units 04:30 05:24 06:48 Hgb (11.4-16.0) gm/dL Neutrophils # (Manual) (1.3-7.7) k/uL Lymphocytes # (Manual) (1.0-4.8) k/uL Sodium (137-145) mmol/L Potassium (3.5-5.1) mmol/L Chloride (98-107) mmol/L Carbon Dioxide (22-30) mmol/L BUN (7-17) mg/dL Creatinine (0.52-1.04) mg/dL Glucose (74-99) mg/dL POC Glucose (mg/dL) 230 H 222 H 168 H (70-110) mg/dL Hemoglobin A1c (0.0-6.0) % Calcium (8.4-10.2) mg/dL Phosphorus (2.5-4.5) mg/dL AST (14-36) U/L Total Protein (6.3-8.2) g/dL Albumin (3.5-5.0) g/dL Procalcitonin (0.02-0.09) ng/mL 09/22/22 09/22/22 09/22/22 Range/Units 07:51 07:56 09:00 Hgb (11.4-16.0) gm/dL Neutrophils # (Manual) (1.3-7.7) k/uL Lymphocytes # (Manual) (1.0-4.8) k/uL Sodium 134 L (137-145) mmol/L Potassium (3.5-5.1) mmol/L Chloride 114 H (98-107) mmol/L Carbon Dioxide 18 L (22-30) mmol/L BUN 5 L (7-17) mg/dL Creatinine 0.43 L (0.52-1.04) mg/dL Glucose 166 H (74-99) mg/dL POC Glucose (mg/dL) 152 H 140 H (70-110) mg/dL Hemoglobin A1c (0.0-6.0) % Calcium 7.3 L (8.4-10.2) mg/dL Phosphorus 1.6 L (2.5-4.5) mg/dL AST 13 L (14-36) U/L Total Protein 4.7 L (6.3-8.2) g/dL Albumin 2.6 L (3.5-5.0) g/dL Procalcitonin (0.02-0.09) ng/mL 09/22/22 09/22/22 09/22/22 Range/Units 09:57 11:03 12:39 Hgb (11.4-16.0) gm/dL Neutrophils # (Manual) (1.3-7.7) k/uL Lymphocytes # (Manual) (1.0-4.8) k/uL Sodium (137-145) mmol/L Potassium (3.5-5.1) mmol/L Chloride (98-107) mmol/L Carbon Dioxide (22-30) mmol/L BUN (7-17) mg/dL Creatinine (0.52-1.04) mg/dL Glucose (74-99) mg/dL POC Glucose (mg/dL) 153 H 149 H 157 H (70-110) mg/dL Hemoglobin A1c (0.0-6.0) % Calcium (8.4-10.2) mg/dL Phosphorus (2.5-4.5) mg/dL AST (14-36) U/L Total Protein (6.3-8.2) g/dL Albumin (3.5-5.0) g/dL Procalcitonin (0.02-0.09) ng/mL Microbiology - Last 24 Hours (Table) 09/20/22 14:33 Urine Culture - Final Urine,Voided Assessment and Plan Assessment: diabetic ketoacidosis diabetes mellitus with hyperglycemia Metabolic acidosis secondary to above dehydration possible acute urinary tract infection Plan: continue with insulin drip per protocol Discontinue insulin drip and start Levemir 20 units and NovoLog 3 units with meals Antibiotics discontinued With the patient out of the ICU Pulmonary/critical care team consult Labs and medication were reviewed.. Continue same treatment. Continue with symptomatic treatment. Resume home medication. Monitor labs and vitals. DVT and GI prophylaxis. Further recommendations as per clinical course of the patient DVT prophylaxis: Subcutaneous heparin GI Prophylaxis: Pepcid Prognosis is guarded
[2022-09-22] MEDS ORDERED: INSULIN DETEMIR (LEVEMIR) 100 UNIT/ML SYR SQ SCH (21:00)
[2022-09-22] MEDS ORDERED: INSULIN ASPART (NovoLOG) 100 UNIT/ML VIAL SQ ONE (21:12)
[2022-09-23 00:18] LABS: Glucose,Whole Blood 166 mg/dL (70-110)
[2022-09-23 05:19] VITALS: BP 109/73; RESP 16; TEMP 98.5
[2022-09-23 07:29] LABS: Glucose,Whole Blood 145 mg/dL (70-110)
[2022-09-23] MEDS: INSULIN ASPART (NovoLOG) 100 UNIT/ML VIAL SQ SCH ×5 (09:27→13:15)
[2022-09-23] MEDS: FAMOTIDINE 20 MG/2 ML VIAL IV SCH (09:31)
[2022-09-23] MEDS: HEPARIN SODIUM,PORCINE/PF 5,000 UNIT/0.5 ML SYRINGE SQ SCH (09:31)
[2022-09-23 10:50] LABS: Magnesium 2.1 mg/dL (1.5-2.4); Phosphorus 3.6 mg/dL (2.4-5.1)
[2022-09-23 12:01] LABS: Glucose,Whole Blood 255 mg/dL (70-110)
[2022-09-23 12:04] VITALS: PULSE 103
[2022-09-23] MEDS ORDERED: FAMOTIDINE 20 MG TAB PO SCH (21:00)
--- NOTE | 2022-09-24 03:54 | DS ---
DISCHARGE SUMMARY FINAL DIAGNOSES: 1. Acute diabetic ketoacidosis. 2. Diabetes mellitus type 2, uncontrolled with hyperglycemia. 3. Urinary tract infection. DISCHARGE DISPOSITION: The patient will be discharged in stable condition, guarded prognosis. HISTORY OF PRESENT ILLNESS: This is a 41-year-old woman with a past medical history and admitted with acute diabetic ketoacidosis and possibility of UTI. The patient treated with insulin drip. The patient improved significantly. PHYSICAL EXAMINATION: VITAL SIGNS: Stable. CARDIOVASCULAR: S1, S2 muffled. ABDOMEN: Soft. NERVOUS SYSTEM: No focal deficits. DISCHARGE INSTRUCTIONS: Otherwise, diet is consistent carb. DISCHARGE MEDICATIONS: The medications will be to continue: 1. Lantus Dr. Rojas. 2. Ceftin 500 mg p.o. b.i.d. for 3 days. MMANIKETL / AGUSTÍNN: [id number] / MTDD
--- NOTE | 2022-09-26 06:43 | CDI ---
Documentation Clarification Form Date: 09/26/22 From: Lakisha Enriquez Admit Date: 09/20/2022 03:06:00 PM Patient Name: Jeaneth Colvin Visit Number: [id number] Discharge Date: 09/23/2022 02:00:00 PM ATTENTION: The Clinical Documentation Specialists (CDI) and [facility] Coding Staff appreciate your assistance in clarifying documentation. Please respond to the clarification below the line at the bottom and electronically sign. The CDI & [facility] Coding staff will review the response and follow-up if needed. Please note: Queries are made part of the Legal Health Record. If you have any questions, please contact the author of this message via ITS. Dr. Kelsey Gallo, Conflicting documentation has been found in the medical record. As attending physician, please provide clarification. Per ED record patient has past medical history of type 1 diabetes who presents to the emergency department thinking that she is in DKA. Per DS states , Acute diabetic ketoacidosis, Diabetes mellitus type 2, uncontrolled with hyperglycemia. History/Risk Factors: none Clinical Indicators: Diabetic ketoacidosis, diabetes mellitus with hyperglycemia, metabolic acidosis secondary to above dehydration and possible acute urinary tract infection. A1C: 12.0 Glucose: 526 Acetone, Qual: Positive Treatment: HumuLIN R, NovoLOG, Levemir Please clarify which diagnosis is most appropriate: [ ] T1DM w DKA [ ] T2DM w DKA [ ] Other (please specify) [ ] Unable to determine T1DM w DKA MTDD
== END 2022-09-23 14:00 | disposition home or self-care (01) | DRG 638 ==
LOC: EC 12:50 → 3SCARD 15:06 → 2SICU 15:50 → 5NMEDONC 09-22 15:33
PROVIDERS: ADMIT Internal Medicine; ATTEND Internal Medicine
DX: E10.10 Type 1 diabetes mellitus with ketoacidosis without coma (principal); N39.0 Urinary tract infection, site not specified; E86.0 Dehydration; Z79.4 Long term (current) use of insulin; Z28.310 Unvaccinated for COVID-19; J45.990 Exercise induced bronchospasm; Z83.3 Family history of diabetes mellitus
CPT/HCPCS: 36415; 36600; 71045; 80048; 80051; 80053; 80076; 81001; 82009; 82565; 82805; 82947; 83036; 83605; 83735; 84100; 84145; 84520; 84703; 85025; 85027; 87086; 93005; 96361; 96374; 96375; 99291

== ENCOUNTER 2022-09-24 18:07 | Inpatient (IN) | payer OTHER ==
[2022-09-24] MEDS ORDERED: SODIUM CHLORIDE 0.9% 1,000 ML IV STA (18:14)
--- NOTE | 2022-09-24 18:17 | ED ---
General Adult HPI - General Chief complaint: Recheck/Abnormal Lab/Rx Stated complaint: hyperglycemia Time Seen by Provider: 09/24/22 18:14 Source: patient Mode of arrival: ambulatory Limitations: no limitations - History of Present Illness Initial comments: Patient presents to the ED with her for evaluation of hyperglycemia. Patient was discharged from the hospital yesterday after being admitted for DKA. Patient states that she was diagnosed with a possible UTI while in the hospital, and she was sent home on antibiotics, which she states she has been taking. Patient states that she began to feel generally weak this evening, and when she checked her blood glucose level, she obtain a reading of "high", so she decided to come to the ED. Patient states that she has been taking her insulin as advised/prescribed. Patient denies any change in her diet. Patient admits to polyuria, but she denies dysuria or hematuria. Patient denies having any other symptoms or complaints. Patient denies having any pain, fever or chills, headache, focal neuro deficit, chest pain, dyspnea, cough or cold symptoms, palpitations, dizziness, abdominal pain, nausea/vomiting/diarrhea, or any other symptoms or complaints. - Related Data Home Medications Medication Instructions Recorded Confirmed Insulin Aspart [NovoLOG Flexpen] See Protocol SQ TID-W/MEALS 09/20/22 09/20/22 Insulin Glargine,Hum.rec.anlog 26 unit SQ HS 09/20/22 09/20/22 [Lantus Solostar Pen] Previous Rx's Medication Instructions Recorded cefUROXime axetiL [Ceftin] 500 mg PO BID 3 Days #6 tab 09/23/22 Allergies Allergy/AdvReac Type Severity Reaction Status Date / Time No Known Allergies Allergy Verified 09/24/22 20:42 Review of Systems ROS Statement: Those systems with pertinent positive or pertinent negative responses have been documented in the HPI. ROS Other: All systems not noted in ROS Statement are negative. 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 Past Anesthesia/Blood Transfusion Reactions: No Reported Reaction Past Psychological History: No Psychological Hx Reported Smoking Status: Never smoker Past Alcohol Use History: None Reported Past Drug Use History: None Reported - Past Family History Mother Family Medical History: Diabetes Mellitus, Hypertension Additional Family Medical History / Comment(s): type 2 DM General Exam Limitations: no limitations General appearance: alert, in no apparent distress Head exam: Present: atraumatic, normocephalic Eye exam: Present: normal appearance, EOMI ENT exam: Present: mucous membranes dry Neck exam: Present: other (Trachea is in midline) Respiratory exam: Present: normal lung sounds bilaterally. Absent: respiratory distress, wheezes, rales, rhonchi, stridor Cardiovascular Exam: Present: normal rhythm, tachycardia, normal heart sounds, other (Normal radial pulses bilaterally) GI/Abdominal exam: Present: soft. Absent: distended, tenderness, guarding Extremities exam: Absent: pedal edema Back exam: Absent: CVA tenderness (R), CVA tenderness (L) Neurological exam: Present: alert, oriented X3. Absent: motor sensory deficit Psychiatric exam: Present: normal affect, normal mood Skin exam: Present: warm, dry, intact, normal color Course Vital Signs 09/24/22 09/24/22 09/24/22 18:10 19:12 20:00 Temperature 97.6 F Pulse Rate 135 H 131 H 122 H Respiratory 20 18 16 Rate Blood Pressure 136/81 111/77 131/76 O2 Sat by Pulse 99 98 100 Oximetry - Reevaluation(s) Reevaluation #1: 09/24/22 20:36 Case, H&P, test results and ED management thus far were discussed with GRINDER Oumou Cortes. She accepts hospital admission on behalf of herself and Dr. Sims. She agrees with starting the patient on a regular insulin IV drip. She has no further recommendations at this time. 09/24/22 20:48 Patient denies development of any new symptoms while in the ED. Patient's tachycardia has improved with IV fluid hydration. Patient and are aware the patient's test results, and patient agrees with hospital admission at this time. EKG Findings - EKG Comments: EKG Findings:: ED physician interpretation: Sinus tachycardia, ventricular rate of 121 bpm, no ectopy, normal [place] and QRS intervals, normal QT interval, normal axis, no ST or T-wave abnormality Medical Decision Making - Medical Decision Making Patient has DKA with hyperglycemia, acidosis, ketones and an elevated anion gap. Patient's DKA appears to be mild, particularly when compared to the level of acidosis during her recent admission. Patient has been treated with IV fluid boluses in the ED, and she was started on a regular insulin IV drip in the ED as well. GRINDER Oumou Cortes has accepted hospital admission on behalf of herself and Dr. Sims. - Lab Data Result diagrams: 09/24/22 18:23 09/24/22 18:23 Lab Results 09/24/22 09/24/22 09/24/22 Range/Units 18:23 18:23 18:23 WBC 9.3 (3.8-10.6) k/uL RBC 4.69 (3.80-5.40) m/uL Hgb 13.7 (11.4-16.0) gm/dL Hct 41.7 (34.0-46.0) % MCV 88.9 (80.0-100.0) fL MCH 29.1 (25.0-35.0) pg MCHC 32.8 (31.0-37.0) g/dL RDW 13.0 (11.5-15.5) % Plt Count 216 (150-450) k/uL MPV 8.0 Neutrophils % 81 % Lymphocytes % 13 % Monocytes % 4 % Eosinophils % 0 % Basophils % 0 % Neutrophils # 7.6 (1.3-7.7) k/uL Lymphocytes # 1.2 (1.0-4.8) k/uL Monocytes # 0.4 (0-1.0) k/uL Eosinophils # 0.0 (0-0.7) k/uL Basophils # 0.0 (0-0.2) k/uL Hypochromasia Slight VBG pH (7.31-7.41) VBG pCO2 (37-51) mmHg VBG HCO3 (24-28) mmol/L Sodium 135 L (137-145) mmol/L Potassium 4.3 (3.5-5.1) mmol/L Chloride 101 (98-107) mmol/L Carbon Dioxide 14 L (22-30) mmol/L Anion Gap 20 mmol/L BUN 18 H (7-17) mg/dL Creatinine 0.71 (0.52-1.04) mg/dL Est GFR (CKD-EPI)AfAm >90 (>60 ml/min/1.73 sqM) Est GFR (CKD-EPI)NonAf >90 (>60 ml/min/1.73 sqM) Glucose 349 H (74-99) mg/dL POC Glucose (mg/dL) (70-110) mg/dL POC Glu Labor Specialist ID Calcium 8.7 (8.4-10.2) mg/dL Phosphorus 3.4 (2.5-4.5) mg/dL Magnesium 1.8 (1.6-2.3) mg/dL Total Bilirubin 0.8 (0.2-1.3) mg/dL AST 21 (14-36) U/L ALT 19 (4-34) U/L Alkaline Phosphatase 131 H (38-126) U/L Total Protein 6.5 (6.3-8.2) g/dL Albumin 4.0 (3.5-5.0) g/dL Urine Color Colorless Urine Appearance Clear (Clear) Urine pH 5.0 (5.0-8.0) Ur Specific [place] 1.023 (1.001-1.035) Urine Protein Negative (Negative) Urine Glucose (UA) 4+ H (Negative) Urine Ketones 4+ H (Negative) Urine Blood Negative (Negative) Urine Nitrite Negative (Negative) Urine Bilirubin Negative (Negative) Urine Urobilinogen <2.0 (<2.0) mg/dL Ur Leukocyte Esterase Small H (Negative) Urine RBC 1 (0-5) /hpf Urine WBC 1 (0-5) /hpf Ur Squamous Epith Cells 1 (0-4) /hpf Urine Mucus Rare H (None) /hpf 09/24/22 09/24/22 09/24/22 Range/Units 18:23 18:23 20:05 WBC (3.8-10.6) k/uL RBC (3.80-5.40) m/uL Hgb (11.4-16.0) gm/dL Hct (34.0-46.0) % MCV (80.0-100.0) fL MCH (25.0-35.0) pg MCHC (31.0-37.0) g/dL RDW (11.5-15.5) % Plt Count (150-450) k/uL MPV Neutrophils % % Lymphocytes % % Monocytes % % Eosinophils % % Basophils % % Neutrophils # (1.3-7.7) k/uL Lymphocytes # (1.0-4.8) k/uL Monocytes # (0-1.0) k/uL Eosinophils # (0-0.7) k/uL Basophils # (0-0.2) k/uL Hypochromasia VBG pH 7.24 L (7.31-7.41) VBG pCO2 34 L (37-51) mmHg VBG HCO3 14 L (24-28) mmol/L Sodium (137-145) mmol/L Potassium (3.5-5.1) mmol/L Chloride (98-107) mmol/L Carbon Dioxide (22-30) mmol/L Anion Gap mmol/L BUN (7-17) mg/dL Creatinine (0.52-1.04) mg/dL Est GFR (CKD-EPI)AfAm (>60 ml/min/1.73 sqM) Est GFR (CKD-EPI)NonAf (>60 ml/min/1.73 sqM) Glucose (74-99) mg/dL POC Glucose (mg/dL) 500 H 328 H (70-110) mg/dL POC Glu Labor Specialist ID Jake Del Castillo Samantha Calcium (8.4-10.2) mg/dL Phosphorus (2.5-4.5) mg/dL Magnesium (1.6-2.3) mg/dL Total Bilirubin (0.2-1.3) mg/dL AST (14-36) U/L ALT (4-34) U/L Alkaline Phosphatase (38-126) U/L Total Protein (6.3-8.2) g/dL Albumin (3.5-5.0) g/dL Urine Color Urine Appearance (Clear) Urine pH (5.0-8.0) Ur Specific [place] (1.001-1.035) Urine Protein (Negative) Urine Glucose (UA) (Negative) Urine Ketones (Negative) Urine Blood (Negative) Urine Nitrite (Negative) Urine Bilirubin (Negative) Urine Urobilinogen (<2.0) mg/dL Ur Leukocyte Esterase (Negative) Urine RBC (0-5) /hpf Urine WBC (0-5) /hpf Ur Squamous Epith Cells (0-4) /hpf Urine Mucus (None) /hpf Critical Care Time Critical Care Time: Yes Total Critical Care Time: 35 Disposition Clinical Impression: Hyperglycemia, DKA (diabetic ketoacidosis) Disposition: ADMITTED IP TO THIS [facility] Condition: Stable Is patient prescribed a controlled substance at d/c from ED?: No Referrals: Thierry Rojas MD [Primary Care Provider] - 1-2 days Time of Disposition: 20:49
[2022-09-24 18:24] LABS: Glucose,Whole Blood 500 mg/dL (70-110)
[2022-09-24 19:01] LABS: Appearance,Urine Clear (Clear); Bilirubin,Urine Negative (Negative); Blood,Urine Negative (Negative); Color,Urine Colorless; Glucose,Urine (UA) 4+ (Negative); Leukocyte Esterase,Urine Small (Negative); Mucus,Urine Rare /hpf; Nitrite,Urine Negative (Negative); Protein,Urine Negative (Negative); RBC,Urine 1 /hpf (0-5); Specific Gravity,Urine 1.023 (1.001-1.035); Squamous Epithelial Cell,Urine 1 /hpf (0-4); Urobilinogen,Urine <2.0 mg/dL (<2.0); WBC,Urine 1 /hpf (0-5)
[2022-09-24 19:06] LABS: Ketones,Urine 4+ (Negative)
[2022-09-24 20:07] LABS: VBG PH 7.24 (7.31-7.41)
[2022-09-24 20:07] LABS: Glucose,Whole Blood 328 mg/dL (70-110)
[2022-09-24 20:09] LABS: Basophils % (A) 0 %; Eosinophils % (A) 0 %; HCT 41.7 % (34.0-46.0); HGB 13.7 gm/dL (11.4-16.0); Hypochromasia Slight; Lymphocytes # (A) 1.2 k/uL (1.0-4.8); Lymphocytes % (A) 13 %; MCH 29.1 pg (25.0-35.0); MCHC 32.8 g/dL (31.0-37.0); MCV 88.9 fL (80.0-100.0); Monocytes # (A) 0.4 k/uL (0-1.0); Monocytes % (A) 4 %; Neutrophils # (A) 7.6 k/uL (1.3-7.7); Neutrophils % (A) 81 %; Platelet Count 216 k/uL (150-450); RBC 4.69 m/uL (3.80-5.40); WBC 9.3 k/uL (3.8-10.6)
[2022-09-24 20:17] LABS: ALT 19 U/L (4-34); AST 21 U/L (14-36); African American GFR (CKD) >90 (>60 ml/min/1.73 sqM); Alkaline Phosphatase 131 U/L (38-126); Anion Gap 20 mmol/L; Blood Urea Nitrogen 18 mg/dL (7-17); Calcium 8.7 mg/dL (8.4-10.2); Carbon Dioxide 14 mmol/L (22-30); Chloride 101 mmol/L (98-107); Glucose 349 mg/dL (74-99); Magnesium 1.8 mg/dL (1.6-2.3); Non-African American GFR(CKD) >90 (>60 ml/min/1.73 sqM); Phosphorus 3.4 mg/dL (2.5-4.5); Potassium 4.3 mmol/L (3.5-5.1); Sodium 135 mmol/L (137-145); Total Bilirubin 0.8 mg/dL (0.2-1.3); Total Protein 6.5 g/dL (6.3-8.2)
[2022-09-24] MEDS ORDERED: SODIUM CHLORIDE 0.9% 1,000 ML IV ONE (20:31)
[2022-09-24 21:01] LABS: HCG,Qualitative Serum Not Detected
[2022-09-24] MEDS: INSULIN REGULAR 100 UNIT in SODIUM CHLORIDE 0.9% 100 ML IV SCH (22:21)
[2022-09-24 22:26] LABS: Glucose,Whole Blood 195 mg/dL (70-110)
[2022-09-24] MEDS: D5-0.45% NACL WITH KCL 20MEQ/L 1,000 ML IV SCH (22:41)
[2022-09-24] MEDS: SODIUM CHLORIDE 0.9% 1,000 ML IV SCH (22:42)
[2022-09-24 23:39] LABS: Glucose,Whole Blood 163 mg/dL (70-110)
[2022-09-25 01:01] LABS: Glucose,Whole Blood 105 mg/dL (70-110)
[2022-09-25 01:29] LABS: African American GFR (CKD) >90 (>60 ml/min/1.73 sqM); Anion Gap 5 mmol/L; Blood Urea Nitrogen 11 mg/dL (7-17); Calcium 7.7 mg/dL (8.4-10.2); Carbon Dioxide 19 mmol/L (22-30); Chloride 110 mmol/L (98-107); Glucose 110 mg/dL (74-99); Non-African American GFR(CKD) >90 (>60 ml/min/1.73 sqM); Phosphorus 2.8 mg/dL (2.5-4.5); Potassium 3.2 mmol/L (3.5-5.1); Sodium 134 mmol/L (137-145)
[2022-09-25 01:43] LABS: Glucose,Whole Blood 72 mg/dL (70-110)
[2022-09-25] MEDS ORDERED: DEXTROSE 50% SYRINGE 50 ML IVP PRN ×2 (02:05)
[2022-09-25] MEDS ORDERED: Potassium Replacement Protocol 1 EACH MISC MISCELLANE PRN (02:08)
[2022-09-25] MEDS: POTASSIUM CHLORIDE ER 20 MEQ TAB.ER PO SCH ×2 (02:42→03:37)
[2022-09-25 02:44] LABS: Glucose,Whole Blood 119 mg/dL (70-110)
[2022-09-25 06:14] LABS: Glucose,Whole Blood 434 mg/dL (70-110)
[2022-09-25] MEDS: INSULIN ASPART (NovoLOG) 100 UNIT/ML VIAL SQ SCH ×4 (06:31→20:29)
[2022-09-25 10:31] LABS: African American GFR (CKD) >90 (>60 ml/min/1.73 sqM); Anion Gap 8 mmol/L; Blood Urea Nitrogen 13 mg/dL (7-17); Carbon Dioxide 16 mmol/L (22-30); Chloride 106 mmol/L (98-107); Glucose 285 mg/dL (74-99); Non-African American GFR(CKD) >90 (>60 ml/min/1.73 sqM); Phosphorus 2.2 mg/dL (2.5-4.5); Sodium 130 mmol/L (137-145)
[2022-09-25] MEDS: D5-0.45% NACL WITH KCL 20MEQ/L 1,000 ML IV SCH (11:23)
[2022-09-25] MEDS: SODIUM CHLORIDE 0.9% 1,000 ML IV SCH ×3 (11:23→18:42)
[2022-09-25 11:28] VITALS: BMI 21.6
[2022-09-25 11:49] LABS: Glucose,Whole Blood 328 mg/dL (70-110)
[2022-09-25] MEDS: INSULIN REGULAR 100 UNIT in SODIUM CHLORIDE 0.9% 100 ML IV SCH (14:21)
[2022-09-25 16:30] LABS: Glucose,Whole Blood 334 mg/dL (70-110)
[2022-09-25 20:04] LABS: Glucose,Whole Blood 392 mg/dL (70-110)
[2022-09-25] MEDS ORDERED: INSULIN DETEMIR (LEVEMIR) 100 UNIT/ML SYR SQ SCH (21:00)
--- NOTE | 2022-09-25 21:52 | P.HPIM ---
History of Present Illness H&P Date: 09/25/22 Chief Complaint: Not feeling well This is a pleasant 41-year-old patient who follows with Dr. Rojas. Patient has a diagnosis of type I diabetic since the age of 11. Insulin being managed by her family doctor. Patient was just discharged from the hospital on September 23 following a diagnosis of UTI and DKA. Patient felt fine. Following day went to the [employer]. Had lunch at [employer]. Starting feeling unwell. tired rundown. Checked her sugars showing high. Readmitted with diabetic ketoacidosis. No fever no chills. No urinary symptoms. Nosymptoms. This morning feeling a bit better. Did eat some breakfast. On insulin drip Accu-Cheks had dropped last night this morning up to 4 34. Was placed back on insulin drip. Review of systems: GEN.: Tired EYES: None HEENT: None NECK: None RESPIRATORY: None CARDIOVASCULAR: None GASTROINTESTINAL: None GENITOURINARY: None MUSCULOSKELETAL: None LYMPHATICS: None HEMATOLOGICAL: None PSYCHIATRY: None NEUROLOGICAL: None 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 . Physical examination: VITAL SIGNS: 98.5, 105, 18, 10 3 x 66, 98% room air GENERAL: BMI 21.6, sitting up in a bed awake, not in distress. EYES: Pupils equal. Conjunctiva normal. HEENT: External appearance of nose and ears normal, oral cavity grossly normal. NECK: JVD not raised; masses not palpable. HEART: First and second heart sounds are normal; no edema. LUNGS: Respiratory rate normal; clear to auscultation. ABDOMEN: Soft, nontender, liver spleen not palpable, no masses palpable. PSYCH: Alert and oriented x3; mood and affect normal. MUSCULOSKELETAL:No Clubbing/cyanosis;muscles-grossly intact NEUROLOGICAL: Cranial nerves grossly intact; no facial asymmetry, power and sensation grossly intact. LYMPHATICS: No lymph nodes palpable in the axilla and neck INVESTIGATIONS, reviewed in the clinical context: 09/25/2022: Sodium 1:30 potassium 5 crit and 0.61 bicarb 16 phosphorus 2.2 Accu-Chek this morning 434 EKG tracing personally reviewed by me-sinus tachycardia, rate 121 Assessment and plan: -Diabetic ketoacidosis. Patient was discharged from the hospital 2 days ago. Was feeling well. Started feeling weak diet and rundown. Readmitted with bicarb of 19. This morning blood glucose has gone up to 434. Patient be put back on insulin drip. No obvious precipitating factor. No infective symptoms. -Hypokalemia Replace -Hyponatremia, likely from high sugar. Follow labs Patient placed back on insulin drip. We'll try to resume Lantus this evening. Care was discussed the patient. Questions answered. Preliminary discussion about insulin pump. She'll follow up this with her PCP/student development coordinator if needed. Subcu Lovenox. Repeat labs. 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 Past Anesthesia/Blood Transfusion Reactions: No Reported Reaction Past Psychological History: No Psychological Hx Reported Smoking Status: Never smoker Past Alcohol Use History: None Reported Past Drug Use History: None Reported - Past Family History Mother Family Medical History: Diabetes Mellitus, Hypertension Additional Family Medical History / Comment(s): type 2 DM Medications and Allergies Home Medications Medication Instructions Recorded Confirmed Type Insulin Aspart [NovoLOG Flexpen] See Protocol SQ TID-W/MEALS 09/20/22 09/24/22 History Insulin Glargine,Hum.rec.anlog 26 unit SQ HS 09/20/22 09/24/22 History [Lantus Solostar Pen] cefUROXime axetiL [Ceftin] 500 mg PO BID 3 Days #6 tab 09/23/22 09/24/22 Rx Allergies Allergy/AdvReac Type Severity Reaction Status Date / Time No Known Allergies Allergy Verified 09/24/22 20:42 Physical Exam Vitals: Vital Signs Temp Pulse Pulse Resp BP BP BP 09/25/22 04:00 98.3 F 106 H 16 105/54 09/25/22 02:00 110 H 16 09/25/22 00:00 98.3 F 110 H 16 99/58 09/24/22 21:56 98.4 F 118 H 18 127/61 09/24/22 20:00 122 H 16 131/76 09/24/22 19:12 131 H 18 111/77 09/24/22 18:10 97.6 F 135 H 20 136/81 Pulse Ox 09/25/22 04:00 96 09/25/22 02:00 09/25/22 00:00 100 09/24/22 21:56 100 09/24/22 20:00 100 09/24/22 19:12 98 09/24/22 18:10 99 Intake and Output 09/24/22 09/25/22 09/25/22 22:59 06:59 14:59 Intake Total 18.017 Balance 18.017 Intake: Intake, IV Titration 18.017 Amount Insulin Regular 100 unit 18.017 In Sodium Chloride 0.9% 100 ml @ 0.1 UNITS/KG/HR 5.956 mls/hr IV .[id number] [facility] Rx#:[id number] Other: Voiding Method Toilet # Voids 2 Weight 58.967 kg Results CBC & Chem 7: 09/24/22 18:23 09/25/22 09:48 Labs: Abnormal Lab Results - Last 24 Hours (Table) 09/24/22 09/24/22 09/24/22 Range/Units 18:23 18:23 18:23 VBG pH 7.24 L (7.31-7.41) VBG pCO2 34 L (37-51) mmHg VBG HCO3 14 L (24-28) mmol/L Sodium 135 L (137-145) mmol/L Potassium (3.5-5.1) mmol/L Chloride (98-107) mmol/L Carbon Dioxide 14 L (22-30) mmol/L BUN 18 H (7-17) mg/dL Creatinine (0.52-1.04) mg/dL Glucose 349 H (74-99) mg/dL POC Glucose (mg/dL) (70-110) mg/dL Calcium (8.4-10.2) mg/dL Alkaline Phosphatase 131 H (38-126) U/L Urine Glucose (UA) 4+ H (Negative) Urine Ketones 4+ H (Negative) Ur Leukocyte Esterase Small H (Negative) Urine Mucus Rare H (None) /hpf 09/24/22 09/24/22 09/24/22 Range/Units 18:23 20:05 22:24 VBG pH (7.31-7.41) VBG pCO2 (37-51) mmHg VBG HCO3 (24-28) mmol/L Sodium (137-145) mmol/L Potassium (3.5-5.1) mmol/L Chloride (98-107) mmol/L Carbon Dioxide (22-30) mmol/L BUN (7-17) mg/dL Creatinine (0.52-1.04) mg/dL Glucose (74-99) mg/dL POC Glucose (mg/dL) 500 H 328 H 195 H (70-110) mg/dL Calcium (8.4-10.2) mg/dL Alkaline Phosphatase (38-126) U/L Urine Glucose (UA) (Negative) Urine Ketones (Negative) Ur Leukocyte Esterase (Negative) Urine Mucus (None) /hpf 09/24/22 09/25/22 09/25/22 Range/Units 23:38 00:51 02:42 VBG pH (7.31-7.41) VBG pCO2 (37-51) mmHg VBG HCO3 (24-28) mmol/L Sodium 134 L (137-145) mmol/L Potassium 3.2 L (3.5-5.1) mmol/L Chloride 110 H (98-107) mmol/L Carbon Dioxide 19 L (22-30) mmol/L BUN (7-17) mg/dL Creatinine 0.45 L (0.52-1.04) mg/dL Glucose 110 H (74-99) mg/dL POC Glucose (mg/dL) 163 H 119 H (70-110) mg/dL Calcium 7.7 L (8.4-10.2) mg/dL Alkaline Phosphatase (38-126) U/L Urine Glucose (UA) (Negative) Urine Ketones (Negative) Ur Leukocyte Esterase (Negative) Urine Mucus (None) /hpf 09/25/22 Range/Units 06:12 VBG pH (7.31-7.41) VBG pCO2 (37-51) mmHg VBG HCO3 (24-28) mmol/L Sodium (137-145) mmol/L Potassium (3.5-5.1) mmol/L Chloride (98-107) mmol/L Carbon Dioxide (22-30) mmol/L BUN (7-17) mg/dL Creatinine (0.52-1.04) mg/dL Glucose (74-99) mg/dL POC Glucose (mg/dL) 434 H (70-110) mg/dL Calcium (8.4-10.2) mg/dL Alkaline Phosphatase (38-126) U/L Urine Glucose (UA) (Negative) Urine Ketones (Negative) Ur Leukocyte Esterase (Negative) Urine Mucus (None) /hpf Thrombosis Risk Factor Assmnt - Choose All That Apply Any of the Below Risk Factors Present?: Yes Each Factor Represents 1 point: Age 41-60 years Thrombosis Risk Factor Assessment Total Risk Factor Score: 1 Thrombosis Risk Factor Assessment Level: Low Risk
[2022-09-25] MEDS: ENOXAPARIN 40 MG/0.4 ML SYRINGE SQ SCH (22:26)
[2022-09-26 05:39] VITALS: RESP 16; TEMP 97.2
[2022-09-26 06:01] LABS: Glucose,Whole Blood 39 mg/dL (70-110)
[2022-09-26 06:03] LABS: Glucose,Whole Blood 53 mg/dL (70-110)
[2022-09-26] MEDS: SODIUM CHLORIDE 0.9% 1,000 ML IV SCH ×3 (06:11→08:58)
[2022-09-26 06:17] LABS: Glucose,Whole Blood 131 mg/dL (70-110)
[2022-09-26 08:39] LABS: African American GFR (CKD) >90 (>60 ml/min/1.73 sqM); Anion Gap 13 mmol/L; Blood Urea Nitrogen 13 mg/dL (7-17); Calcium 8.5 mg/dL (8.4-10.2); Carbon Dioxide 16 mmol/L (22-30); Chloride 104 mmol/L (98-107); Glucose 194 mg/dL (74-99); Non-African American GFR(CKD) >90 (>60 ml/min/1.73 sqM); Potassium 4.4 mmol/L (3.5-5.1); Sodium 133 mmol/L (137-145)
[2022-09-26] MEDS: INSULIN ASPART (NovoLOG) 100 UNIT/ML VIAL SQ SCH ×2 (08:49→12:20)
[2022-09-26] MEDS: ENOXAPARIN 40 MG/0.4 ML SYRINGE SQ SCH (08:57)
[2022-09-26 11:27] LABS: Glucose,Whole Blood 266 mg/dL (70-110)
[2022-09-26 12:23] VITALS: BP 109/65; PULSE 102
--- NOTE | 2022-09-26 16:55 | P.DS ---
Providers Date of admission: 09/24/22 20:38 Expected date of discharge: 09/26/22 Attending physician: Migue Gregory Primary care physician: Thierry Rojas [facility] Course: Chief Complaint: Not feeling well This is a pleasant 41-year-old patient who follows with Dr. Rojas. Patient has a diagnosis of type I diabetic since the age of 11. Insulin being managed by her family doctor. Patient was just discharged from the hospital on September 23 following a diagnosis of UTI and DKA. Patient felt fine. Following day went to the [employer]. Had lunch at [employer]. Starting feeling unwell. tired rundown. Checked her sugars showing high. Readmitted with diabetic ketoacidosis. No fever no chills. No urinary symptoms. Nosymptoms. This morning feeling a bit better. Did eat some On insulin drip Accu-Cheks had dropped last night this morning up to 4 34. Was placed back on insulin drip. 09/26/2022: Patient taken off insulin drip last night. She did drop her Accu- Chek with 26 Levemir last night.. Patient does take Lantus at home. Cutback to 22 units. Patient will follow-up with her PCP regarding insulin pump. Questions answered. She does have a sliding scale. 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 . Physical examination: VITAL SIGNS: 97.2, 102, 16, 10 9 x 75, 98% room air GENERAL: Sitting on bed, awake, comfortable EYES: Pupils equal. Conjunctiva normal. HEENT: External appearance of nose and ears normal, oral cavity grossly normal. NECK: JVD not raised; masses not palpable. HEART: First and second heart sounds are normal; no edema. LUNGS: Respiratory rate normal; clear to auscultation. ABDOMEN: Soft, nontender, liver spleen not palpable, no masses palpable. PSYCH: Alert and oriented x3; mood and affect normal. INVESTIGATIONS, reviewed in the clinical context: 09/26/2022: Potassium 4.4 creatinine 0.49 09/25/2022: Sodium 1:30 potassium 5 crit and 0.61 bicarb 16 phosphorus 2.2 Accu-Chek this morning 434 EKG tracing personally reviewed by me-sinus tachycardia, rate 121 Assessment and plan: -Diabetic ketoacidosis. Patient was discharged from the hospital 2 days ago. Was feeling well. Started feeling weak diet and rundown. Readmitted with bicarb of 19. Better -Diabetes mellitus type 1, brittle Discharge in Lantus 22 units at night. Sliding scale. -Hypokalemia Replace -Hyponatremia, likely from high sugar. Follow labs Disposition: Home Plan - Discharge Summary New Discharge Prescriptions: Continue Insulin Aspart [NovoLOG Flexpen] See Protocol SQ TID-W/MEALS Changed Insulin Glargine,Hum.rec.anlog [Lantus Solostar Pen] 22 unit SQ HS #0 Discontinued cefUROXime axetiL [Ceftin] 500 mg PO BID 3 Days #6 tab Discharge Medication List Insulin Aspart [NovoLOG Flexpen] See Protocol SQ TID-W/MEALS 09/20/22 [History] Insulin Glargine,Hum.rec.anlog [Lantus Solostar Pen] 22 unit SQ HS #0 09/26/22 [Rx] Follow up Appointment(s)/Referral(s): Thierry Rojas MD [Primary Care Provider] - 1-2 days Patient Instructions/Handouts: Diabetic Ketoacidosis (DC) Discharge Disposition: HOME SELF-CARE
== END 2022-09-26 13:18 | disposition home or self-care (01) | DRG 638 ==
LOC: EC 18:07 → 3SCARD 20:38
PROVIDERS: ADMIT Hospitalist; ATTEND Hospitalist
DX: E10.10 Type 1 diabetes mellitus with ketoacidosis without coma (principal); E87.1 Hypo-osmolality and hyponatremia; E87.6 Hypokalemia; Z79.4 Long term (current) use of insulin; J45.990 Exercise induced bronchospasm; Z79.899 Other long term (current) drug therapy; Z87.440 Personal history of urinary (tract) infections
CPT/HCPCS: 36415; 80048; 80053; 81001; 82009; 82803; 83735; 84100; 84520; 84703; 85025; 93005; 94760; 96360; 96361; 99291

== ENCOUNTER 2022-10-01 13:41 | Inpatient (IN) | payer OTHER ==
[2022-10-01 14:01] LABS: Glucose,Whole Blood >600 mg/dL (70-110)
[2022-10-01] MEDS ORDERED: SODIUM CHLORIDE 0.9% 1,000 ML IV ONE (14:20)
[2022-10-01] MEDS ORDERED: INSULIN REGULAR BOLUS (FROM DRIP BAG) IV ONE (14:20)
[2022-10-01] MEDS ORDERED: SODIUM CHLORIDE 0.9% 1,000 ML IV STA (14:23)
--- NOTE | 2022-10-01 14:25 | ED ---
General Adult HPI - General Chief complaint: Recheck/Abnormal Lab/Rx Stated complaint: Nausea,Weakness,hyperglycemia Time Seen by Provider: 10/01/22 14:02 Source: patient, family, RN notes reviewed Mode of arrival: ambulatory Limitations: no limitations - History of Present Illness Initial comments: Patient is a pleasant 41-year-old female presenting to the emergency department with concern for her blood sugar. Patient was in the hospital twice recently. Patient's blood sugar has been labile at home. Blood sugar was as low as 50 the other night and other times is reading high. Patient feels fatigued and dehydrated. Patient's mouth feels dry. Patient did have recent urinary tract infection however has completed treatment for it and has no urinary symptoms. - Related Data Home Medications Medication Instructions Recorded Confirmed Insulin Aspart [NovoLOG Flexpen] See Protocol SQ TID-W/MEALS 09/20/22 09/24/22 Previous Rx's Medication Instructions Recorded Insulin Glargine,Hum.rec.anlog 22 unit SQ HS #0 09/26/22 [Lantus Solostar Pen] Allergies Allergy/AdvReac Type Severity Reaction Status Date / Time No Known Allergies Allergy Verified 09/24/22 20:42 Review of Systems ROS Statement: Those systems with pertinent positive or pertinent negative responses have been documented in the HPI. ROS Other: All systems not noted in ROS Statement are negative. 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 Past Anesthesia/Blood Transfusion Reactions: No Reported Reaction Past Psychological History: No Psychological Hx Reported Smoking Status: Never smoker Past Alcohol Use History: None Reported Past Drug Use History: None Reported - Past Family History Mother Family Medical History: Diabetes Mellitus, Hypertension Additional Family Medical History / Comment(s): type 2 DM General Exam Limitations: no limitations General appearance: alert, in no apparent distress Head exam: Present: normocephalic Eye exam: Present: normal appearance ENT exam: Present: mucous membranes dry Neck exam: Present: normal inspection Respiratory exam: Present: normal lung sounds bilaterally Cardiovascular Exam: Present: tachycardia GI/Abdominal exam: Present: soft. Absent: tenderness Extremities exam: Present: normal inspection. Absent: pedal edema, calf tenderness Neurological exam: Present: alert Psychiatric exam: Present: normal affect, normal mood Skin exam: Present: normal color Course Vital Signs 10/01/22 10/01/22 13:57 14:57 Temperature 98 F Pulse Rate 118 H 126 H Respiratory 40 H 30 H Rate Blood Pressure 112/64 112/61 O2 Sat by Pulse 100 100 Oximetry EKG Findings - EKG Results: EKG: interpreted by ERMD, sinus rhythm, normal axis, normal QRS, normal ST/T EKG shows: tachycardia Medical Decision Making - Medical Decision Making Patient reevaluated. Patient and family are updated on results and plan. Case was also discussed with Dr. Gregory, who will admit For Dr. Rojas. - Lab Data Result diagrams: 10/01/22 14:39 10/01/22 14:39 Lab Results 10/01/22 10/01/22 10/01/22 Range/Units 13:59 14:39 14:39 WBC 13.5 H (3.8-10.6) k/uL RBC 4.32 (3.80-5.40) m/uL Hgb 12.5 (11.4-16.0) gm/dL Hct 42.7 (34.0-46.0) % MCV 98.9 D (80.0-100.0) fL MCH 28.9 (25.0-35.0) pg MCHC 29.2 L (31.0-37.0) g/dL RDW 13.1 (11.5-15.5) % Plt Count 428 (150-450) k/uL MPV 7.9 Neutrophils % 92 % Lymphocytes % 5 % Monocytes % 2 % Eosinophils % 0 % Basophils % 1 % Neutrophils # 12.4 H (1.3-7.7) k/uL Lymphocytes # 0.6 L (1.0-4.8) k/uL Monocytes # 0.3 (0-1.0) k/uL Eosinophils # 0.1 (0-0.7) k/uL Basophils # 0.1 (0-0.2) k/uL Hypochromasia Marked Sodium (137-145) mmol/L Potassium (3.5-5.1) mmol/L Chloride (98-107) mmol/L Carbon Dioxide (22-30) mmol/L Anion Gap mmol/L BUN (7-17) mg/dL Creatinine (0.52-1.04) mg/dL Est GFR (CKD-EPI)AfAm (>60 ml/min/1.73 sqM) Est GFR (CKD-EPI)NonAf (>60 ml/min/1.73 sqM) Glucose (74-99) mg/dL POC Glucose (mg/dL) >600 H (70-110) mg/dL POC Glu Supervisor [employer] ID Nubia Jerome Plasma Lactic Acid Evens (0.7-2.0) mmol/L Calcium (8.4-10.2) mg/dL Total Bilirubin (0.2-1.3) mg/dL AST (14-36) U/L ALT (4-34) U/L Alkaline Phosphatase (38-126) U/L Total Protein (6.3-8.2) g/dL Albumin (3.5-5.0) g/dL Urine Color Colorless Urine Appearance Clear (Clear) Urine pH 5.0 (5.0-8.0) Ur Specific Friend 1.021 (1.001-1.035) Urine Protein Negative (Negative) Urine Glucose (UA) 4+ H (Negative) Urine Ketones 4+ H (Negative) Urine Blood Small H (Negative) Urine Nitrite Negative (Negative) Urine Bilirubin Negative (Negative) Urine Urobilinogen <2.0 (<2.0) mg/dL Ur Leukocyte Esterase Negative (Negative) Urine RBC 14 H (0-5) /hpf Urine Mucus Rare H (None) /hpf Acetone, Qual (Negative) 10/01/22 10/01/22 Range/Units 14:39 14:39 WBC (3.8-10.6) k/uL RBC (3.80-5.40) m/uL Hgb (11.4-16.0) gm/dL Hct (34.0-46.0) % MCV (80.0-100.0) fL MCH (25.0-35.0) pg MCHC (31.0-37.0) g/dL RDW (11.5-15.5) % Plt Count (150-450) k/uL MPV Neutrophils % % Lymphocytes % % Monocytes % % Eosinophils % % Basophils % % Neutrophils # (1.3-7.7) k/uL Lymphocytes # (1.0-4.8) k/uL Monocytes # (0-1.0) k/uL Eosinophils # (0-0.7) k/uL Basophils # (0-0.2) k/uL Hypochromasia Sodium 133 L (137-145) mmol/L Potassium 6.0 H (3.5-5.1) mmol/L Chloride 98 (98-107) mmol/L Carbon Dioxide 6 L* (22-30) mmol/L Anion Gap 29 mmol/L BUN 21 H (7-17) mg/dL Creatinine 0.89 (0.52-1.04) mg/dL Est GFR (CKD-EPI)AfAm >90 (>60 ml/min/1.73 sqM) Est GFR (CKD-EPI)NonAf 80 (>60 ml/min/1.73 sqM) Glucose 778 H* (74-99) mg/dL POC Glucose (mg/dL) (70-110) mg/dL POC Glu Supervisor Phosphatic Fertilizer ID Plasma Lactic Acid Evens 1.6 (0.7-2.0) mmol/L Calcium 8.8 (8.4-10.2) mg/dL Total Bilirubin 0.8 (0.2-1.3) mg/dL AST 19 (14-36) U/L ALT 23 (4-34) U/L Alkaline Phosphatase 210 H (38-126) U/L Total Protein 6.2 L (6.3-8.2) g/dL Albumin 4.0 (3.5-5.0) g/dL Urine Color Urine Appearance (Clear) Urine pH (5.0-8.0) Ur Specific Friend (1.001-1.035) Urine Protein (Negative) Urine Glucose (UA) (Negative) Urine Ketones (Negative) Urine Blood (Negative) Urine Nitrite (Negative) Urine Bilirubin (Negative) Urine Urobilinogen (<2.0) mg/dL Ur Leukocyte Esterase (Negative) Urine RBC (0-5) /hpf Urine Mucus (None) /hpf Acetone, Qual Positive (Negative) - Radiology Data Interpreted by me: Two-view chest x-ray reveals no acute abnormality. Critical Care Time Critical Care Time: Yes Total Critical Care Time: 32 Disposition Clinical Impression: DKA (diabetic ketoacidosis) Disposition: ADMITTED IP TO THIS [facility] Condition: Serious Is patient prescribed a controlled substance at d/c from ED?: No Referrals: Thierry Rojas MD [Primary Care Provider] - 1-2 days Time of Disposition: 15:55
[2022-10-01] MEDS ORDERED: SODIUM CHLORIDE 0.9% 1,000 ML IV SCH (14:30)
[2022-10-01 14:53] LABS: Basophils # (A) 0.1 k/uL (0-0.2); Basophils % (A) 1 %; Eosinophils # (A) 0.1 k/uL (0-0.7); Eosinophils % (A) 0 %; HCT 42.7 % (34.0-46.0); HGB 12.5 gm/dL (11.4-16.0); Hypochromasia Marked; Lymphocytes # (A) 0.6 k/uL (1.0-4.8); Lymphocytes % (A) 5 %; MCH 28.9 pg (25.0-35.0); MCHC 29.2 g/dL (31.0-37.0); Mean Platelet Volume 7.9; Monocytes # (A) 0.3 k/uL (0-1.0); Monocytes % (A) 2 %; Neutrophils # (A) 12.4 k/uL (1.3-7.7); Neutrophils % (A) 92 %; Platelet Count 428 k/uL (150-450); RBC 4.32 m/uL (3.80-5.40); RDW 13.1 % (11.5-15.5); WBC 13.5 k/uL (3.8-10.6)
[2022-10-01] MEDS: INSULIN REGULAR 100 UNIT in SODIUM CHLORIDE 0.9% 100 ML IV SCH (14:53)
[2022-10-01 14:56] LABS: Appearance,Urine Clear (Clear); Bilirubin,Urine Negative (Negative); Blood,Urine Small (Negative); Color,Urine Colorless; Glucose,Urine (UA) 4+ (Negative); Leukocyte Esterase,Urine Negative (Negative); Mucus,Urine Rare /hpf; Nitrite,Urine Negative (Negative); Protein,Urine Negative (Negative); RBC,Urine 14 /hpf (0-5); Specific Gravity,Urine 1.021 (1.001-1.035); Urobilinogen,Urine <2.0 mg/dL (<2.0)
[2022-10-01 14:58] LABS: Ketones,Urine 4+ (Negative)
[2022-10-01 15:00] LABS: MCV 98.9 fL (80.0-100.0)
[2022-10-01 15:07] LABS: ALT 23 U/L (4-34); AST 19 U/L (14-36); African American GFR (CKD) >90 (>60 ml/min/1.73 sqM); Alkaline Phosphatase 210 U/L (38-126); Anion Gap 29 mmol/L; Blood Urea Nitrogen 21 mg/dL (7-17); Calcium 8.8 mg/dL (8.4-10.2); Chloride 98 mmol/L (98-107); Non-African American GFR(CKD) 80 (>60 ml/min/1.73 sqM); Sodium 133 mmol/L (137-145); Total Bilirubin 0.8 mg/dL (0.2-1.3); Total Protein 6.2 g/dL (6.3-8.2)
[2022-10-01 15:21] LABS: Carbon Dioxide 6 mmol/L (22-30); Glucose 778 mg/dL (74-99)
--- NOTE | 2022-10-01 15:31 | XR ---
EXAMINATION TYPE: XR chest 2V DATE OF EXAM: 10/01/2022 COMPARISON: 09/20/2022 HISTORY: Weakness TECHNIQUE: 2 views FINDINGS: Heart and mediastinum are normal. Lungs are clear. Images normal. Bony thorax is intact. The pulmonary vascularity is normal. IMPRESSION: Normal chest. No change.
[2022-10-01 16:18] LABS: Glucose,Whole Blood 530 mg/dL (70-110)
[2022-10-01 16:38] LABS: African American GFR (CKD) >90 (>60 ml/min/1.73 sqM); Blood Urea Nitrogen 21 mg/dL (7-17); Chloride 106 mmol/L (98-107); Non-African American GFR(CKD) 88 (>60 ml/min/1.73 sqM); Sodium 137 mmol/L (137-145)
[2022-10-01 16:48] LABS: Glucose 607 mg/dL (74-99)
[2022-10-01 16:49] LABS: Carbon Dioxide <5 mmol/L (22-30)
[2022-10-01 17:06] LABS: Glucose,Whole Blood 416 mg/dL (70-110)
[2022-10-01 18:01] LABS: Glucose,Whole Blood 322 mg/dL (70-110)
[2022-10-01 19:04] LABS: Glucose,Whole Blood 189 mg/dL (70-110)
[2022-10-01] MEDS: D5-0.45% NACL WITH KCL 20MEQ/L 1,000 ML IV SCH (19:05)
[2022-10-01 20:02] LABS: Glucose,Whole Blood 129 mg/dL (70-110)
[2022-10-01 20:06] LABS: African American GFR (CKD) >90 (>60 ml/min/1.73 sqM); Anion Gap 13 mmol/L; Blood Urea Nitrogen 17 mg/dL (7-17); Carbon Dioxide 12 mmol/L (22-30); Chloride 114 mmol/L (98-107); Glucose 172 mg/dL (74-99); Non-African American GFR(CKD) >90 (>60 ml/min/1.73 sqM); Potassium 4.6 mmol/L (3.5-5.1); Sodium 139 mmol/L (137-145)
[2022-10-01 21:02] LABS: Glucose,Whole Blood 121 mg/dL (70-110)
[2022-10-01 21:59] LABS: Glucose,Whole Blood 95 mg/dL (70-110)
[2022-10-01 23:02] LABS: Glucose,Whole Blood 157 mg/dL (70-110)
[2022-10-02 00:03] LABS: Glucose,Whole Blood 199 mg/dL (70-110)
[2022-10-02 01:07] LABS: Glucose,Whole Blood 162 mg/dL (70-110)
[2022-10-02 01:22] LABS: African American GFR (CKD) >90 (>60 ml/min/1.73 sqM); Anion Gap 13 mmol/L; Blood Urea Nitrogen 14 mg/dL (7-17); Carbon Dioxide 13 mmol/L (22-30); Chloride 110 mmol/L (98-107); Glucose 195 mg/dL (74-99); Non-African American GFR(CKD) >90 (>60 ml/min/1.73 sqM); Phosphorus 3.3 mg/dL (2.5-4.5); Potassium 4.2 mmol/L (3.5-5.1); Sodium 136 mmol/L (137-145)
[2022-10-02] MEDS: D5-0.45% NACL WITH KCL 20MEQ/L 1,000 ML IV SCH ×2 (01:56→07:01)
[2022-10-02 03:45] LABS: Glucose,Whole Blood 170 mg/dL (70-110)
[2022-10-02 03:45] LABS: Glucose,Whole Blood 151 mg/dL (70-110)
[2022-10-02 04:01] LABS: Glucose,Whole Blood 155 mg/dL (70-110)
[2022-10-02 04:28] LABS: African American GFR (CKD) >90 (>60 ml/min/1.73 sqM); Anion Gap 5 mmol/L; Blood Urea Nitrogen 12 mg/dL (7-17); Carbon Dioxide 17 mmol/L (22-30); Chloride 112 mmol/L (98-107); Glucose 176 mg/dL (74-99); Non-African American GFR(CKD) >90 (>60 ml/min/1.73 sqM); Phosphorus 2.6 mg/dL (2.5-4.5); Potassium 4.2 mmol/L (3.5-5.1); Sodium 134 mmol/L (137-145)
[2022-10-02 05:04] LABS: Glucose,Whole Blood 196 mg/dL (70-110)
[2022-10-02 06:03] LABS: Glucose,Whole Blood 158 mg/dL (70-110)
[2022-10-02 06:57] LABS: Glucose,Whole Blood 224 mg/dL (70-110)
[2022-10-02] MEDS: INSULIN REGULAR 100 UNIT in SODIUM CHLORIDE 0.9% 100 ML IV SCH (06:58)
[2022-10-02] MEDS: INSULIN ASPART (NovoLOG) 100 UNIT/ML VIAL SQ SCH ×3 (07:01→15:30)
[2022-10-02 07:56] VITALS: RESP 17; TEMP 98.2
[2022-10-02] MEDS ORDERED: INSULIN DETEMIR (LEVEMIR) 100 UNIT/ML SYR SQ SCH (08:00)
[2022-10-02 09:47] LABS: African American GFR (CKD) >90 (>60 ml/min/1.73 sqM); Anion Gap 8 mmol/L; Blood Urea Nitrogen 11 mg/dL (7-17); Carbon Dioxide 20 mmol/L (22-30); Chloride 110 mmol/L (98-107); Glucose 132 mg/dL (74-99); Non-African American GFR(CKD) >90 (>60 ml/min/1.73 sqM); Phosphorus 2.3 mg/dL (2.5-4.5); Potassium 4.5 mmol/L (3.5-5.1); Sodium 138 mmol/L (137-145)
[2022-10-02 11:06] LABS: Glucose,Whole Blood 85 mg/dL (70-110)
[2022-10-02 12:32] VITALS: BMI 22.3
[2022-10-02 13:10] VITALS: PULSE 98
--- NOTE | 2022-10-02 14:07 | P.HPIM ---
History of Present Illness H&P Date: 10/02/22 Chief Complaint: High Accu-Chek This is a pleasant 41-year-old patient who follows with Dr. Rojas. Patient has a diagnosis of type I diabetic since the age of 11. being managed by her family doctor. discharged from the hospital on September 23 following a diagnosis of UTI and DKA. Patient felt fine. Following day went to the [employer]. Had lunch at [employer]. Starting feeling unwell. tired rundown. Checked her sugars showing high. Readmitted with diabetic ketoacidosis. Readmitted on September 25 and DKA. Patient still temperature 2 diabetes. Suggested to follow up with PCP and missile inspector [employer]. Lantus cutback to 22 units at night. Since going home patient's sugars have been somewhat up and down. Patient had an appointment tomorrow with a family doctor. Patient went to the [employer] yesterday and after taking a meal that which was rather controlled Accu-Chek started running high. On presentation here her blood glucose was 607.-in ketoacidosis. Started on insulin drip. Denied any urinary or respiratory symptoms. No fever no chills. Positive this morning insulin drip was taken out. Given 22 units of Levemir. Patient did tolerate her breakfast. Review of systems: GEN.: Tired EYES: None HEENT: None NECK: None RESPIRATORY: None CARDIOVASCULAR: None GASTROINTESTINAL: None GENITOURINARY: None MUSCULOSKELETAL: None LYMPHATICS: None HEMATOLOGICAL: None PSYCHIATRY: None NEUROLOGICAL: None 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 . Physical examination: VITAL SIGNS: 98, 118, 30, 11 2 x 61, 100% room air upon presentation] GENERAL: BMI 22.3, sitting on bed awake, not in distress. EYES: Pupils equal. Conjunctiva normal. HEENT: External appearance of nose and ears normal, oral cavity grossly normal. NECK: JVD not raised; masses not palpable. HEART: First and second heart sounds are normal; no edema. LUNGS: Respiratory rate normal; clear to auscultation. ABDOMEN: Soft, nontender, liver spleen not palpable, no masses palpable. PSYCH: Alert and oriented x3; mood and affect normal. MUSCULOSKELETAL:No Clubbing/cyanosis;muscles-grossly intact NEUROLOGICAL: Cranial nerves grossly intact; no facial asymmetry, power and sensation grossly intact. LYMPHATICS: No lymph nodes palpable in the axilla and neck INVESTIGATIONS, reviewed in the clinical context: 10/02/2022: Potassium 4.5 creatinine 0.5 to phosphorus 2.3 phosphorus 2.3 Admission labs: Potassium 5 bicarbonate less than 5, glucose 609 EKG tracing personally reviewed by me-normal sinus rhythm, sinus tachycardia Chest x-ray film personally reviewed by me-negative Assessment and plan: -Diabetic ketoacidosis. This is patient's third admission in a short time. No precipitating factors. Patient due to see missile inspector pre[facility]. IV insulin drip on presentation. -Diabetes mellitus type 1, brittle Patient due to see her family doctor tomorrow and get a referral to missile inspector pre[facility]. -Hypophosphatemia Replace IV insulin drip. Patient started on Levemir 22 units this morning. Tolerating diet. Will watch Accu-Cheks today. Hopefully can be discharged home later this evening. Discussed with patient. 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 Past Anesthesia/Blood Transfusion Reactions: No Reported Reaction Past Psychological History: No Psychological Hx Reported Smoking Status: Never smoker Past Alcohol Use History: None Reported Past Drug Use History: None Reported - Past Family History Mother Family Medical History: Diabetes Mellitus, Hypertension Additional Family Medical History / Comment(s): type 2 DM Medications and Allergies Home Medications Medication Instructions Recorded Confirmed Type Insulin Aspart [NovoLOG Flexpen] See Protocol SQ TID-W/MEALS 09/20/22 10/01/22 History Insulin Glargine,Hum.rec.anlog 20 unit SQ DAILY #0 10/02/22 10/01/22 Rx [Lantus Solostar Pen] Allergies Allergy/AdvReac Type Severity Reaction Status Date / Time No Known Allergies Allergy Verified 10/01/22 16:20 Physical Exam Vitals: Vital Signs Temp Pulse Pulse Resp BP BP Pulse Ox 10/02/22 07:55 98.2 F 108 H 17 99/55 100 10/02/22 04:00 98.0 F 94 14 96/57 99 10/02/22 00:00 98.2 F 104 H 16 90/54 95 10/01/22 19:49 98.4 F 118 H 20 91/56 99 10/01/22 17:05 98.1 F 120 H 17 111/73 100 10/01/22 16:15 122 H 20 99/64 99 10/01/22 14:57 126 H 30 H 112/61 100 10/01/22 13:57 98 F 118 H 40 H 112/64 100 Intake and Output 10/01/22 10/02/22 10/02/22 22:59 06:59 14:59 Intake Total 36.318 955.325 340 Balance 36.318 955.325 340 Intake: IV 750 D5-0.45% NaCl with KCl 750 20Meq/l 1,000 ml @ 150 mls/hr IV .[id number] [facility] Rx# :[id number] Intake, IV Titration 36.318 5.325 Amount Insulin Regular 100 unit 36.318 5.325 In Sodium Chloride 0.9% 100 ml @ 0.1 UNITS/KG/HR 6.139 mls/hr IV .[id number] [facility] Rx#:[id number] Oral 200 340 Other: Weight 60.781 kg Results CBC & Chem 7: 10/01/22 14:39 10/02/22 09:08 Labs: Abnormal Lab Results - Last 24 Hours (Table) 10/01/22 10/01/22 10/01/22 Range/Units 13:59 14:39 14:39 WBC 13.5 H (3.8-10.6) k/uL MCHC 29.2 L (31.0-37.0) g/dL Neutrophils # 12.4 H (1.3-7.7) k/uL Lymphocytes # 0.6 L (1.0-4.8) k/uL Sodium (137-145) mmol/L Potassium (3.5-5.1) mmol/L Chloride (98-107) mmol/L Carbon Dioxide (22-30) mmol/L BUN (7-17) mg/dL Creatinine (0.52-1.04) mg/dL Glucose (74-99) mg/dL POC Glucose (mg/dL) >600 H (70-110) mg/dL Phosphorus (2.5-4.5) mg/dL Alkaline Phosphatase (38-126) U/L Total Protein (6.3-8.2) g/dL Urine Glucose (UA) 4+ H (Negative) Urine Ketones 4+ H (Negative) Urine Blood Small H (Negative) Urine RBC 14 H (0-5) /hpf Urine Mucus Rare H (None) /hpf 10/01/22 10/01/22 10/01/22 Range/Units 14:39 16:14 16:17 WBC (3.8-10.6) k/uL MCHC (31.0-37.0) g/dL Neutrophils # (1.3-7.7) k/uL Lymphocytes # (1.0-4.8) k/uL Sodium 133 L (137-145) mmol/L Potassium 6.0 H (3.5-5.1) mmol/L Chloride (98-107) mmol/L Carbon Dioxide 6 L* <5 L* (22-30) mmol/L BUN 21 H 21 H (7-17) mg/dL Creatinine (0.52-1.04) mg/dL Glucose 778 H* 607 H* (74-99) mg/dL POC Glucose (mg/dL) 530 H (70-110) mg/dL Phosphorus (2.5-4.5) mg/dL Alkaline Phosphatase 210 H (38-126) U/L Total Protein 6.2 L (6.3-8.2) g/dL Urine Glucose (UA) (Negative) Urine Ketones (Negative) Urine Blood (Negative) Urine RBC (0-5) /hpf Urine Mucus (None) /hpf 10/01/22 10/01/22 10/01/22 Range/Units 17:05 17:59 19:02 WBC (3.8-10.6) k/uL MCHC (31.0-37.0) g/dL Neutrophils # (1.3-7.7) k/uL Lymphocytes # (1.0-4.8) k/uL Sodium (137-145) mmol/L Potassium (3.5-5.1) mmol/L Chloride (98-107) mmol/L Carbon Dioxide (22-30) mmol/L BUN (7-17) mg/dL Creatinine (0.52-1.04) mg/dL Glucose (74-99) mg/dL POC Glucose (mg/dL) 416 H 322 H 189 H (70-110) mg/dL Phosphorus (2.5-4.5) mg/dL Alkaline Phosphatase (38-126) U/L Total Protein (6.3-8.2) g/dL Urine Glucose (UA) (Negative) Urine Ketones (Negative) Urine Blood (Negative) Urine RBC (0-5) /hpf Urine Mucus (None) /hpf 10/01/22 10/01/22 10/01/22 Range/Units 19:36 20:00 21:01 WBC (3.8-10.6) k/uL MCHC (31.0-37.0) g/dL Neutrophils # (1.3-7.7) k/uL Lymphocytes # (1.0-4.8) k/uL Sodium (137-145) mmol/L Potassium (3.5-5.1) mmol/L Chloride 114 H (98-107) mmol/L Carbon Dioxide 12 L (22-30) mmol/L BUN (7-17) mg/dL Creatinine (0.52-1.04) mg/dL Glucose 172 H (74-99) mg/dL POC Glucose (mg/dL) 129 H 121 H (70-110) mg/dL Phosphorus (2.5-4.5) mg/dL Alkaline Phosphatase (38-126) U/L Total Protein (6.3-8.2) g/dL Urine Glucose (UA) (Negative) Urine Ketones (Negative) Urine Blood (Negative) Urine RBC (0-5) /hpf Urine Mucus (None) /hpf 10/01/22 10/02/22 10/02/22 Range/Units 23:01 00:01 00:12 WBC (3.8-10.6) k/uL MCHC (31.0-37.0) g/dL Neutrophils # (1.3-7.7) k/uL Lymphocytes # (1.0-4.8) k/uL Sodium 136 L (137-145) mmol/L Potassium (3.5-5.1) mmol/L Chloride 110 H (98-107) mmol/L Carbon Dioxide 13 L (22-30) mmol/L BUN (7-17) mg/dL Creatinine (0.52-1.04) mg/dL Glucose 195 H (74-99) mg/dL POC Glucose (mg/dL) 157 H 199 H (70-110) mg/dL Phosphorus (2.5-4.5) mg/dL Alkaline Phosphatase (38-126) U/L Total Protein (6.3-8.2) g/dL Urine Glucose (UA) (Negative) Urine Ketones (Negative) Urine Blood (Negative) Urine RBC (0-5) /hpf Urine Mucus (None) /hpf 10/02/22 10/02/22 10/02/22 Range/Units 01:06 01:59 03:05 WBC (3.8-10.6) k/uL MCHC (31.0-37.0) g/dL Neutrophils # (1.3-7.7) k/uL Lymphocytes # (1.0-4.8) k/uL Sodium (137-145) mmol/L Potassium (3.5-5.1) mmol/L Chloride (98-107) mmol/L Carbon Dioxide (22-30) mmol/L BUN (7-17) mg/dL Creatinine (0.52-1.04) mg/dL Glucose (74-99) mg/dL POC Glucose (mg/dL) 162 H 170 H 151 H (70-110) mg/dL Phosphorus (2.5-4.5) mg/dL Alkaline Phosphatase (38-126) U/L Total Protein (6.3-8.2) g/dL Urine Glucose (UA) (Negative) Urine Ketones (Negative) Urine Blood (Negative) Urine RBC (0-5) /hpf Urine Mucus (None) /hpf 10/02/22 10/02/22 10/02/22 Range/Units 04:00 04:07 05:03 WBC (3.8-10.6) k/uL MCHC (31.0-37.0) g/dL Neutrophils # (1.3-7.7) k/uL Lymphocytes # (1.0-4.8) k/uL Sodium 134 L (137-145) mmol/L Potassium (3.5-5.1) mmol/L Chloride 112 H (98-107) mmol/L Carbon Dioxide 17 L (22-30) mmol/L BUN (7-17) mg/dL Creatinine 0.50 L (0.52-1.04) mg/dL Glucose 176 H (74-99) mg/dL POC Glucose (mg/dL) 155 H 196 H (70-110) mg/dL Phosphorus (2.5-4.5) mg/dL Alkaline Phosphatase (38-126) U/L Total Protein (6.3-8.2) g/dL Urine Glucose (UA) (Negative) Urine Ketones (Negative) Urine Blood (Negative) Urine RBC (0-5) /hpf Urine Mucus (None) /hpf 10/02/22 10/02/22 10/02/22 Range/Units 06:02 06:57 09:08 WBC (3.8-10.6) k/uL MCHC (31.0-37.0) g/dL Neutrophils # (1.3-7.7) k/uL Lymphocytes # (1.0-4.8) k/uL Sodium (137-145) mmol/L Potassium (3.5-5.1) mmol/L Chloride 110 H (98-107) mmol/L Carbon Dioxide 20 L (22-30) mmol/L BUN (7-17) mg/dL Creatinine (0.52-1.04) mg/dL Glucose 132 H (74-99) mg/dL POC Glucose (mg/dL) 158 H 224 H (70-110) mg/dL Phosphorus 2.3 L (2.5-4.5) mg/dL Alkaline Phosphatase (38-126) U/L Total Protein (6.3-8.2) g/dL Urine Glucose (UA) (Negative) Urine Ketones (Negative) Urine Blood (Negative) Urine RBC (0-5) /hpf Urine Mucus (None) /hpf Thrombosis Risk Factor Assmnt - Choose All That Apply Each Factor Represents 1 point: Age 41-60 years Thrombosis Risk Factor Assessment Total Risk Factor Score: 1 Thrombosis Risk Factor Assessment Level: Low Risk
[2022-10-02] MEDS ORDERED: ENOXAPARIN 40 MG/0.4 ML SYRINGE SQ SCH (14:15)
[2022-10-02 14:57] LABS: Glucose,Whole Blood 125 mg/dL (70-110)
[2022-10-02] MEDS ORDERED: POTAS-SOD-PHOS 278-164-250 MG 1 EACH PACKET PO SCH (15:00)
[2022-10-02 15:48] VITALS: BP 99/61
[2022-10-02 16:24] LABS: Glucose,Whole Blood 89 mg/dL (70-110)
[2022-10-03] MEDS ORDERED: INSULIN DETEMIR (LEVEMIR) 100 UNIT/ML SYR SQ SCH (07:00)
--- NOTE | 2022-10-03 21:39 | P.DS ---
Providers Date of admission: 10/01/22 15:56 Expected date of discharge: 10/02/22 Attending physician: Migue Gregory Primary care physician: Thierry Rojas [facility] Course: Chief Complaint: High Accu-Chek This is a pleasant 41-year-old patient who follows with Dr. Rojas. Patient has a diagnosis of type I diabetic since the age of 11. being managed by her family doctor. discharged from the hospital on September 23 following a diagnosis of UTI and DKA. Patient felt fine. Following day went to the [place] Had lunch at [employer]. Starting feeling unwell. tired rundown. Checked her sugars showing high. Readmitted with diabetic ketoacidosis. Readmitted on September 25 and DKA. Patient still temperature 2 diabetes. Suggested to follow up with PCP and industrial millwright. Lantus cutback to 22 units at night. Since going home patient's sugars have been somewhat up and down. Patient had an appointment tomorrow with a family doctor. Patient went to the [employer] yesterday and after taking a meal that which was rather controlled Accu-Chek started running high. On presentation here her blood glucose was 607.-in ketoacidosis. Started on insulin drip. Denied any urinary or respiratory symptoms. No fever no chills. Positive this morning insulin drip was taken out. Given 22 units of Levemir. Patient did tolerate her breakfast. Patient was later discharged in the evening. Follow up with her PCP. She'll get referral to see industrial millwright for insulin pump. 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 . Physical examination: VITAL SIGNS: 98, 17, 99/61, 98% room air GENERAL: BMI 22.3, sitting on bed awake, not in distress. EYES: Pupils equal. Conjunctiva normal. HEENT: External appearance of nose and ears normal, oral cavity grossly normal. NECK: JVD not raised; masses not palpable. HEART: First and second heart sounds are normal; no edema. LUNGS: Respiratory rate normal; clear to auscultation. ABDOMEN: Soft, nontender, liver spleen not palpable, no masses palpable. PSYCH: Alert and oriented x3; mood and affect normal. MUSCULOSKELETAL:No Clubbing/cyanosis;muscles-grossly intact NEUROLOGICAL: Cranial nerves grossly intact; no facial asymmetry, power and sensation grossly intact. LYMPHATICS: No lymph nodes palpable in the axilla and neck INVESTIGATIONS, reviewed in the clinical context: 10/02/2022: Potassium 4.5 creatinine 0.5 to phosphorus 2.3 phosphorus 2.3 Admission labs: Potassium 5 bicarbonate less than 5, glucose 609 EKG tracing personally reviewed by me-normal sinus rhythm, sinus tachycardia Chest x-ray film personally reviewed by me-negative Assessment and plan: -Diabetic ketoacidosis. This is patient's third admission in a short time. No precipitating factors. Patient due to see industrial millwright. IV insulin drip on presentation. -Diabetes mellitus type 1, brittle Patient due to see her family doctor tomorrow and get a referral to industrial millwright. -Hypophosphatemia Replace Disposition: Home Plan - Discharge Summary Discharge Rx Participant: No New Discharge Prescriptions: Continue Insulin Aspart [NovoLOG Flexpen] See Protocol SQ TID-W/MEALS Changed Insulin Glargine,Hum.rec.anlog [Lantus Solostar Pen] 20 unit SQ DAILY #0 Discharge Medication List Insulin Aspart [NovoLOG Flexpen] See Protocol SQ TID-W/MEALS 09/20/22 [History] Insulin Glargine,Hum.rec.anlog [Lantus Solostar Pen] 20 unit SQ DAILY #0 10/02/22 [Rx] Follow up Appointment(s)/Referral(s): Thierry Rojas MD [Primary Care Provider] - 1-2 days (call to schedule appt. tell them you were discharged from [facility] 10/02 for DKA and need a follow up. ) Patient Instructions/Handouts: Diabetic Ketoacidosis (DC) Activity/Diet/Wound Care/Special Instructions: dc after supper - take lantus in the morning from now on. monitor blood glucose at home. Discharge Disposition: HOME SELF-CARE
== END 2022-10-02 18:29 | disposition home or self-care (01) | DRG 639 ==
LOC: EC 13:41 → 3SCARD 15:56
PROVIDERS: ADMIT Hospitalist; ATTEND Hospitalist
DX: E10.10 Type 1 diabetes mellitus with ketoacidosis without coma (principal); E83.39 Other disorders of phosphorus metabolism; E86.0 Dehydration; R00.0 Tachycardia, unspecified; J45.909 Unspecified asthma, uncomplicated; Z79.4 Long term (current) use of insulin; Z83.3 Family history of diabetes mellitus; Z87.440 Personal history of urinary (tract) infections
CPT/HCPCS: 36415; 71046; 80051; 80053; 81001; 82009; 82565; 82947; 83605; 84100; 84520; 85025; 93005; 96360; 96361; 99291